=== PATIENT | female | born 1940 | race Caucasian/White ===

== ENCOUNTER 2018-01-16 13:12 | Inpatient (IN) | payer MEDICARE ==
[~2018-01-16] VITALS: Ht 162.6 cm; Wt 77.2 kg
--- NOTE | 2018-01-16 13:12 | NUR ---
[id number] FROM STRE[address]: LACERATION TO L EYEBROW, BALATERAL ANKLE PAIN S/P UNWITNESSED FALL. NAD NOTED. PT AAO TO NAME AND PLACE ONLY. VSS. RR EVEN AND UNLABORED. MD AT BEDSIDE FOR EVAL.
--- NOTE | 2018-01-16 13:21 | NUR ---
CALLED NURSING SUP FOR TELE BED
[2018-01-16 13:53] LABS: BASOPHILS # (AUTO) 0.1 /CMM (0.0-0.2); EOSINOPHILS % (AUTO) 1.9 % (0.0-6.0)
[2018-01-16 13:57] LABS: BASOPHILS % (AUTO) 0.5 % (0.0-2.0); HEMATOCRIT 35 % (33-45); LYMPHOCYTES # (AUTO) 1.3 /CMM (0.8-4.8); LYMPHOCYTES % (AUTO) 10.3 % (20.0-44.0); MEAN CORPUSCULAR HGB CONC 31 g/dl (31.0-36.0); MEAN CORPUSCULAR VOLUME 60 fL (82-100); MONOCYTES % (AUTO) 8.1 % (2.0-12.0); NEUTROPHILS # (AUTO) 9.9 /CMM (1.8-8.9); NEUTROPHILS % (AUTO) 79.2 % (43.0-81.0); PLATELET COUNT (AUTO) 363 /CMM (150-450); RED BLOOD CELL COUNT(AUTO) 5.84 MIL/uL (4.0-5.2); WHITE BLOOD COUNT (AUTO) 12.5 K/uL (4.3-11.0)
--- NOTE | 2018-01-16 14:08 | NUR ---
PER ESCALATOR INSTALLER, PT IS FROM [facility].
[2018-01-16 14:10] LABS: CALCIUM, SERUM 8.6 mg/dL (8.5-10.1); CARBON DIOXIDE 32 mmol/L (21-32); CHLORIDE 101 mmol/L (98-107); CREATININE 0.8 mg/dL (0.6-1.3); GLUCOSE 112 mg/dL (74-106); POTASSIUM 3.5 mmol/L (3.5-5.1); SODIUM SERUM 138 mmol/L (136-145); UREA NITROGEN, BLOOD 12 mg/dL (7-18)
[2018-01-16 14:13] LABS: TROPONIN I < 0.017 ng/mL (0.00-0.056)
[2018-01-16 14:15] LABS: ALANINE AMINOTRANSFERASE 21 U/L (12-78); ALBUMIN 3.4 g/dL (3.4-5.0); ALKALINE PHOSPHATASE 89 U/L (46-116); ASPARTATE AMINOTRANSFERASE 21 U/L (15-37); BILIRUBIN,DIRECT 0.2 mg/dL (0.0-0.2); INR 0.96 (0.85-1.15)
[2018-01-16 16:31] LABS: APPEARANCE,URINE Clear (CLEAR); BILIRUBIN,URINE Negative (NEGATIVE); BLOOD, URINE Trace-lysed Ery/uL (NEGATIVE); COLOR,URINE Dark (YELLOW); KETONES,URINE Negative (NEGATIVE); LEUKOCYTE ESTERASE ,URINE Negative (NEGATIVE); NITRITE, URINE Negative (NEGATIVE); PH,URINE 5.5 (5.0-8.0); PROTEIN,URINE Negative (NEGATIVE); UGLUCOSE Negative (NEGATIVE); UROBILINOGEN,URINE 0.2 EU/dL (0.2)
[2018-01-16 17:00] LABS: RBC,URINE 0-2 /HPF (0-2); WBC,URINE 0-2 /HPF (0-3)
[2018-01-16 17:01] LABS: BACTERIA,URINE Rare /HPF (None Seen); SQUAMOUS EPITHELIAL CELL,UR Few /HPF (None Seen)
[2018-01-16] MEDS ORDERED: AMLO5TAB7 PO (17:52)
[2018-01-16] MEDS ORDERED: ESCI10TA PO (17:52)
--- NOTE | 2018-01-16 18:00 | NUR ---
CALLED [facility], REQUESTED THEM TO FAX US PT INFO, ACCORDING TO NURSE THERE THE PRIMARY DR. IS
--- NOTE | 2018-01-16 18:13 | NUR ---
GROUP CALLED, FOREIGN LANGUAGE PROFESSOR, PAGED
[2018-01-16] MEDS ORDERED: ASPI-1169 PO (18:23)
[2018-01-16] MEDS ORDERED: ACET-868 PO (18:23)
[2018-01-16] MEDS ORDERED: MAGN400O6 PO (18:23)
[2018-01-16] MEDS ORDERED: NA P133E RC (18:23)
[2018-01-16] MEDS ORDERED: ATOR40TA PO (18:23)
[2018-01-16] MEDS ORDERED: BISA10SU8 RC (18:23)
[2018-01-16] MEDS ORDERED: ACET-2605 PO (18:23)
--- NOTE | 2018-01-16 18:31 | NUR ---
REPORT GIVEN TO NAMITA WARE FOR TASNEEM
--- NOTE | 2018-01-16 19:27 | NUR ---
CALLED [facility] FOR PSYCH EVAL
--- NOTE | 2018-01-16 19:30 | NUR ---
TELE/RN OPENING NOTES PT RECEIVED TO UNIT FROM ER VIA ONEIL. A/OX1-2. ON ROOM AIR, BREATHING EVEN AND UNLABORED. DENIES SOB OR PAIN AT THIS TIME. PT WITH NO IV ACCESS AT THIS TIME. WILL REINSERT. ORIENTED PT TO ROOM AND CALL LIGHT. BED IN LOW/LOCKED POSITION WITH CALL LIGHT IN REACH. SIDE RAILS UPX3 WITH BED ALARM ON FOR SAFETY. LEFT FOREHEAD LACERATION WITH STITCHES NOTED. DRIED BLOOD NOTED. ATTEMPTED TO REMOVE WITH WARM WET WASHCLOTH BUT PT REFUSING. PLACED ON TELE MONITOR SHOWING SR WITH BBB, HR 77. WILL CONTINUE TO MONITOR
[2018-01-16 20:00] VITALS: BP_SYST 132; BP_SYST 134; BP_DIAS 72; BP_DIAS 87
--- NOTE | 2018-01-16 20:30 | NUR ---
TELE/RN NOTES PAGED DR. TUCKER FOR ADMITTING ORDERS.
--- NOTE | 2018-01-16 20:44 | NUR ---
TELE/RN NOTES RECEIVED CALL FROM DR TUCKER WITH THE FOLLOWING ORDERS. ADMITTING DX= ALOC, SYNCOPE, HEAD CONTUSION; ADMIT TO= TELE; DIET=REGULAR; IVF- D5NS@70ML/HR; AM LABS= CBC, BMP; CONTINUE MEDS FROM HALF-WAY AND PSYCH CONSULT COMES TO SEE THIS PT FOR POSSIBLE 5150 HOLD. ORDERS NOTED AND READBACK PER PROTOCOL. WILL CARRY OUT. Addendum: 01/17/18 at 0014 by DANYA AARON RN ADMIT TO= MEDSURG*
[2018-01-16] MEDS ORDERED: ACETAMINOPHEN 325 MG TABLET PO PRN (21:00)
[2018-01-16] MEDS ORDERED: ACETAMINOPHEN ES 500 MG TABLET PO PRN (21:00)
[2018-01-16] MEDS ORDERED: NA PHOS,M-B/NA PHOS,DI-BA 1 EA ENEMA RC PRN (21:00)
[2018-01-16] MEDS ORDERED: MAGNESIUM HYDROXIDE 30 ML UDC PO PRN (21:00)
[2018-01-16] MEDS ORDERED: BISACODYL SUPP (10 MG) 10 MG/SUPP.RECT SUPP.RECT RC PRN (21:00)
[2018-01-16] MEDS ORDERED: ATORVASTATIN 40 MG TABLET PO SCH (22:00)
[2018-01-16] MEDS: IV D5/ 0.9% NACL 1,000 ML IV PRN (22:36)
--- NOTE | 2018-01-16 22:40 | NUR ---
MS/RN NOTES PT REFUSING IV INSERTION. EDUCATION PROVIDED X3. PT STRONGLY REFUSING AND BECOMING AGITATED. WILL TRY AGAIN LATER
--- NOTE | 2018-01-16 23:10 | NUR ---
MS/RN NOTES PT WANTING TO GET OUT OF THE BED. PT DOES NOT NEED TO USE THE RESTROOM. ENCOURAGED PT TO REMAIN IN THE BED DUE TO PT'S RECENT FALL AND HEAD CONTUSION. PT REFUSING AND "WANTS TO BE LEFT ALONE. I NEED TO GET SOME THINGS DONE". MONITORED AND ASSISTED PT WAS WANDERING INSIDE HER ROOM. PT WENT INTO HALLWAY, ATTEMPTING TO GO IN OTHER PT'S ROOM. ATTEMPTED TO REDIRECT PT. PT BECOMING INCREASINGLY AGITATED WHEN TRYING TO REDIRECT, STAFF ESCORTED BACK TO ROOM. EDUCATED PT THAT SHE NEEDS TO STAY IN BED TO AVOID FALLS. PT RELUCTANTLY WENT BACK TO BED. BED ALARM PLACED AND SIDE RAILS UP FOR SAFETY.
--- NOTE | 2018-01-17 03:10 | NUR ---
MS/RN NOTES PT AGREED FOR IV INSERTION. LAC #22, IVF INITIATED
--- NOTE | 2018-01-17 06:55 | NUR ---
MS/RN CLOSING NOTES PT AWAKE, RESTING COMFORTABLY IN BED. REMAINED CALM FOR THE DURATION OF THE SHIFT. REMAINS ON ROOM AIR, BREATHING EVEN AND UNLABORED. NO SOB OR PAIN AT THIS TIME. A/OX1-2 CONFUSED. IV TO LAC PATENT AND INTACT RUNNING IVF ORDERED. ASSISTED TO THE BATHROOM PRN WITH STANDBY ASSIST. STEADY GAIT. REORIENTED PRN. ALL NEEDS MET. SAFETY PRECAUTIONS IMPLEMENTED. BED REMAINS IN LOW/LOCKED POSITION WITH CALL LIGHT IN REACH. SIDE RAILS UPX3 AND BED ALARM ON FOR SAFETY. FOR PSYCH CONSULT PER MD ORDER. WILL ENDORSE TO DAY SHIFT RN TASNEEM.
[2018-01-17 07:08] LABS: BASOPHILS # (AUTO) 0.1 /CMM (0.0-0.2); BASOPHILS % (AUTO) 0.4 % (0.0-2.0); HEMATOCRIT 35 % (33-45); HEMOGLOBIN 11.1 g/dL (11.5-14.8); LYMPHOCYTES # (AUTO) 1.9 /CMM (0.8-4.8); LYMPHOCYTES % (AUTO) 12.5 % (20.0-44.0); MEAN CORPUSCULAR HGB CONC 32 g/dl (31.0-36.0); MEAN CORPUSCULAR VOLUME 60 fL (82-100); MONOCYTES # (AUTO) 1.5 /CMM (0.1-1.30); MONOCYTES % (AUTO) 10.1 % (2.0-12.0); NEUTROPHILS # (AUTO) 11.4 /CMM (1.8-8.9); PLATELET COUNT (AUTO) 357 /CMM (150-450); RDW COEFFICIENT OF VARIATION 16.5 (11.5-15.0); RED BLOOD CELL COUNT(AUTO) 5.84 MIL/uL (4.0-5.2); WHITE BLOOD COUNT (AUTO) 15.2 K/uL (4.3-11.0)
--- NOTE | 2018-01-17 07:30 | NUR ---
MS RN NOTES PATIENT RECEIVED RESTING INSIDE ROOM, AWAKE, ALERT AND ORIENTED 1-2. VERBALLY RESPONSIVE AND RESPONDS TO VERBAL AND TACTILE STIMULI. BREATHING EVEN AND UNLABORED. NO SOB OR ACUTE DISTRESS NOTED. PATIENT NOTED WITH LEFT FOREHEAD LACERATION WITH STITCHES. PATIENT DENIES ANY PAIN OR DISCOMFORT. NO CHANGES IN LOC NOTED. IV SITE INTACT AND PATENT, NO SWELLING OR DISCOLORATION NOTED. AWAITING PSYCH CONSULT. WILL CONTINUE TO MONITOR. BILATERAL UPPER SIDE RAILS UP AND LOCKED. BED LOCKED AND IN LOW POSITION. BED ALARM ON. CALL LIGHT WITHIN EASY REACH
[2018-01-17 07:43] LABS: CALCIUM, SERUM 8.5 mg/dL (8.5-10.1); CARBON DIOXIDE 27 mmol/L (21-32); CHLORIDE 102 mmol/L (98-107); CREATININE 0.7 mg/dL (0.6-1.3); GLUCOSE 126 mg/dL (74-106); POTASSIUM 3.6 mmol/L (3.5-5.1); SODIUM SERUM 139 mmol/L (136-145); UREA NITROGEN, BLOOD 11 mg/dL (7-18)
[2018-01-17 08:00] VITALS: BP 145/54
[2018-01-17] MEDS: ASPIRIN 81 MG TAB.CHEW PO SCH (08:14)
[2018-01-17] MEDS: AMLODIPINE BESYLATE 5 MG TABLET PO SCH (08:14)
[2018-01-17] MEDS: ESCITALOPRAM OXALATE (10 MG) 10 MG TABLET PO SCH (08:14)
[2018-01-17 08:20] LABS: IRON, SERUM 28 ug/dl (50-175); TOTAL IRON BINDING CAPACITY 254 ug/dl (250-450)
[2018-01-17 08:35] LABS: CHOLESTEROL 120 mg/dL (<200); FERRITIN 126 ng/mL (8-388); HDL CHOLESTEROL 37 mg/dL (40-60); LDL 73 mg/dL (0-99); MAGNESIUM 1.8 mg/dL (1.8-2.4); THYROID STIMULATING HORMONE 1.501 uIU/mL (0.358-3.74); TRIGLYCERIDES 108 mg/dL (30-150); TROPONIN I < 0.017 ng/mL (0.00-0.056)
[2018-01-17 09:00] VITALS: BP_SYST 132; BP_SYST 135; BP_SYST 138; BP_DIAS 54; BP_DIAS 67; BP_DIAS 74
[2018-01-17] MEDS ORDERED: ESCITALOPRAM OXALATE (10 MG) 10 MG TABLET PO SCH (11:30)
--- NOTE | 2018-01-17 13:22 | NUR ---
MS RN NOTES PATIENT SEEN AND EXAMINED BY DR. LORENA MARIA WITH NEW ORDER FOR BLOOD CULTURE X 2 TO BE DONE TODAY. ORDER NOTED AND CARRIED OUT. PATIENT AND DAUGHTER AT BEDSIDE AWARE. LAB MADE AWARE. WILL CONTINUE TO MONITOR
[2018-01-17 16:00] VITALS: BP 130/89
[2018-01-17] MEDS: FERROUS SULFATE (325 MG) 325 MG/TAB TABLET PO SCH (16:16)
--- NOTE | 2018-01-17 19:05 | NUR ---
MS/DEBONING TEAM LEADER; RECEIVED PT'S REPORTS FROM THE DAY SHIFT RN FOR CONTINUITY OF CARE. AT THIS TIME PT IN BED AWAKE, VERBALLY RESPONSIVE BUT WITH CONFUSION. IVF ON PROGRESS. BED ON LOWER POSITION AND LOCKED FOR SAFETY. SIDE RAILS X3 ARE UP FOR SAFETY. CALL LIGHT WITHIN REACH. NIGHT SITTER PRESENT AT THIS TIME. WILL CONTINUE TO MONITOR.
--- NOTE | 2018-01-17 19:47 | NUR ---
MS RN NOTES PATIENT RESTING INSIDE ROOM, AWAKE, ALERT AND ORIENTED. VERBALLY RESPONSIVE AND RESPONDS TO VERBAL AND TACTILE STIMULI. BREATHING EVEN AND UNLABORED. NO SOB OR ACUTE DISTRESS NOTED. NO CHANGES IN LOC NOTED. PATIENT AFEBRILE, SKIN DRY AND WARM TO TOUCH. IV SITE INTACT AND PATENT. NO SWELLING OR BLEEDING NOTED ON SITE. ENDORSED TO INCOMING SHIFT FOR TASNEEM. BED LOCKED AND IN LOW POSITION. BILATERAL UPPER SIDE RAILS UP AND LOCKED. CALL LIGHT WITHIN EASY REACH
--- NOTE | 2018-01-17 19:55 | NUR ---
MS/OBSTETRICS SCRUB NURSE; RN FROM [facility] CALLED AND I SPOKE TO HER AND SHE SAID DAY SHIFT RNYOLI CALLED HER REGARDING PT'S ALLERGIES AND THE RN SAID PT IS ALLERGIC TO MUSHROOM AND ONIONS NO MEDS. ALLERGY.
[2018-01-17 20:00] VITALS: BP 146/61
--- NOTE | 2018-01-17 20:00 | NUR ---
MS/COAGULATING BATH OPERATOR; PT WALKED FROM THE ROOM TO THE HALLWAY WITH THE SITTER TOLERATED FINE AND BACK TO THE ROOM. DENIES PAIN. WILL CONTINUE TO MONITOR. PT WITH LT FOREHEAD LACERATION.
--- NOTE | 2018-01-17 20:15 | NUR ---
MS/ASSOCIATE EMBALMER/FUNERAL DIRECTOR; PT SITTING ON THE CHAIR AT THIS TIME WITH SITTER AT THE SIDE AND PT IS EATING BY SELF.
[2018-01-17] MEDS: IV D5/ 0.9% NACL 1,000 ML IV PRN (23:21)
--- NOTE | 2018-01-18 06:30 | NUR ---
MS/LENS MOLDER; NEW HL STARTED BY THE CHARGE NURSE ON LA # 22 AND IVF RESUMED. OLD HL REMOVED BY THE CN. PT AWAKE MOST OF THE TIME. AM CARE DONE BY THE SITTER. WILL ENDORSE TO THE DAY SHIFT NURSE.
--- NOTE | 2018-01-18 07:36 | NUR ---
MS RN NOTES PATIENT RECEIVED RESTING INSIDE ROOM, AWAKE, ALERT AND ORIENTED X 1-2 WITH FREQUENT EPISODES OF FORGETFULNESS. PATIENT VERBALLY RESPONSIVE AND RESPONDS TO VERBAL AND TACTILE STIMULI. BREATHING EVEN AND UNLABORED. NO SOB OR ACUTE DISTRESS NOTED. PATIENT CALM AND RELAXED. NO CHANGES IN LOC NOTED AT THIS TIME. IV SITE INTACT AND PATENT, NO SWELLING OR BLEEDING NOTED ON SITE. SITTER AT BEDSIDE. PATIENT REORIENTED. WILL CONTINUE TO MONITOR. BED LOCKED AND IN LOW POSITION, BED ALARM ON. BILATERAL UPPER SIDE RAILS UP AND LOCKED. CALL LIGHT WITHIN EASY REACH
[2018-01-18 08:00] VITALS: BP 130/70
[2018-01-18] MEDS: FERROUS SULFATE (325 MG) 325 MG/TAB TABLET PO SCH ×2 (08:08→16:45)
[2018-01-18] MEDS: AMLODIPINE BESYLATE 5 MG TABLET PO SCH (08:08)
[2018-01-18] MEDS: ASPIRIN 81 MG TAB.CHEW PO SCH (08:08)
[2018-01-18] MEDS: ESCITALOPRAM OXALATE (10 MG) 10 MG TABLET PO SCH (08:08)
[2018-01-18 08:13] LABS: BASOPHILS % (AUTO) 0.3 % (0.0-2.0); EOSINOPHILS % (AUTO) 3.6 % (0.0-6.0); HEMATOCRIT 34 % (33-45); HEMOGLOBIN 10.6 g/dL (11.5-14.8); LYMPHOCYTES # (AUTO) 1.6 /CMM (0.8-4.8); LYMPHOCYTES % (AUTO) 12.8 % (20.0-44.0); MEAN CORPUSCULAR HGB CONC 31 g/dl (31.0-36.0); MEAN CORPUSCULAR VOLUME 61 fL (82-100); MONOCYTES # (AUTO) 1.1 /CMM (0.1-1.30); MONOCYTES % (AUTO) 8.6 % (2.0-12.0); NEUTROPHILS # (AUTO) 9.5 /CMM (1.8-8.9); NEUTROPHILS % (AUTO) 74.7 % (43.0-81.0); PLATELET COUNT (AUTO) 341 /CMM (150-450); RDW COEFFICIENT OF VARIATION 16.8 (11.5-15.0); RED BLOOD CELL COUNT(AUTO) 5.62 MIL/uL (4.0-5.2); WHITE BLOOD COUNT (AUTO) 12.8 K/uL (4.3-11.0)
[2018-01-18 08:29] LABS: ALANINE AMINOTRANSFERASE 23 U/L (12-78); ALKALINE PHOSPHATASE 92 U/L (46-116); ASPARTATE AMINOTRANSFERASE 21 U/L (15-37); CALCIUM, SERUM 8.6 mg/dL (8.5-10.1); CARBON DIOXIDE 27 mmol/L (21-32); CHLORIDE 103 mmol/L (98-107); CREATININE 0.6 mg/dL (0.6-1.3); GLUCOSE 115 mg/dL (74-106); MAGNESIUM 1.7 mg/dL (1.8-2.4); PHOSPHORUS 2.5 mg/dL (2.5-4.9); POTASSIUM 3.2 mmol/L (3.5-5.1); SODIUM SERUM 139 mmol/L (136-145); TOTAL PROTEIN, SERUM 6.8 g/dL (6.4-8.2); UREA NITROGEN, BLOOD 8 mg/dL (7-18)
[2018-01-18 08:40] LABS: EOSINOPHILS % (MANUAL) 5 % (0-4); LYMPHOCYTES % (MANUAL) 12 % (16-48); MONOCYTES % (MANUAL) 7 % (0-11.0); NEUTROPHILS % (MANUAL) 76 (42-76); TROPONIN I < 0.017 ng/mL (0.00-0.056)
[2018-01-18] MEDS ORDERED: Magnesium 1GM/D5W 100ML PREMIX 100 ML IV SCH (08:59)
[2018-01-18] MEDS: POTASSIUM CHLORIDE 20 MEQ TAB.PRT.SR PO SCH ×3 (09:27→10:35)
[2018-01-18] MEDS ORDERED: MAGNESIUM OXIDE 400 MG TABLET PO ONE (10:00)
[2018-01-18 16:00] VITALS: BP 116/65
--- NOTE | 2018-01-18 18:50 | NUR ---
MS RN NOTES PATIENT RESTING INSIDE ROOM. AWAKE, ALERT AND ORIENTED WITH FREQUENT PERIODS OF FORGETFULNESS. SITTER AT BEDSIDE. PATIENT BREATHING EVEN AND UNLABORED. NO SOB OR ACUTE DISTRESS NOTED. PATIENT AFEBRILE, SKIN DRY AND WARM TO TOUCH. NO CHANGES IN LOC NOTED. PATIENT CALM AND RELAXED. DENIES ANY PAIN OR DISCOMFORT. WILL ENDORSE TO INCOMING SHIFT FOR TASNEEM. BED LOCKED AND IN LOW POSITION. ALARM ON. BILATERAL SIDE RAILS UP AND LOCKED. CALL LIGHT WITHIN EASY REACH
--- NOTE | 2018-01-18 19:37 | NUR ---
MS RN OPENING NOTES PT RECEIVED RESTING INSIDE ROOM, AWAKE, A & O X 1-2. VERBALLY RESPONSIVE AND RESPONDS TO VERBAL AND TACTILE STIMULI. BREATHING EVEN AND UNLABORED. NO SOB OR ACUTE DISTRESS NOTED. PATIENT DENIES ANY PAIN OR DISCOMFORT. ON 1:1 SITTER SUPERVISION FOR SAFETY. NO CHANGES IN LOC NOTED. NO IV SITE @ THIS TIME DUE TO PT HAS BEEN REMOVING THE IV CATH EVERY TIME IT WAS INSERTED, PER AM RN. WILL CONTINUE TO MONITOR. BILATERAL UPPER SIDE RAILS UP AND LOCKED. BED LOCKED AND IN LOW POSITION. BED ALARM ON. CALL LIGHT WITHIN EASY REACH.
[2018-01-18 20:00] VITALS: BP 141/87
--- NOTE | 2018-01-19 03:35 | NUR ---
MS RN NOTE PT SLEPT INTERMITTENTLY UNTIL NOW. ON 1:1 SITTER FOR SAFETY. ABLE TO AMBULATE WITH ASSISTANCE. NO TASNEEM NOTED.
--- NOTE | 2018-01-19 06:29 | NUR ---
MS/RN CLOSING NOTES PT SLEEPING COMFORTABLY IN BED. REMAINED CALM FOR THE DURATION OF THE SHIFT, @ RA, BREATHING EVEN AND UNLABORED. NO SOB OR PAIN AT THIS TIME. A & O X 1-2 CONFUSED. NO IV ACCESS. ASSISTED TO THE BATHROOM PRN WITH STANDBY ASSIST. ON 1:1 SITTER OBSERVATION. REORIENTED PRN. ALL NEEDS MET. SAFETY PRECAUTIONS IMPLEMENTED. BED IN LOW/LOCKED POSITION WITH CALL LIGHT IN REACH. SIDE RAILS UP X 2 AND BED ALARM ON FOR SAFETY. WILL ENDORSE TO DAY SHIFT RN TASNEEM.
[2018-01-19 07:22] LABS: BASOPHILS # (AUTO) 0.1 /CMM (0.0-0.2); BASOPHILS % (AUTO) 0.4 % (0.0-2.0); EOSINOPHILS % (AUTO) 3.7 % (0.0-6.0); HEMATOCRIT 37 % (33-45); HEMOGLOBIN 11.5 g/dL (11.5-14.8); LYMPHOCYTES # (AUTO) 2.5 /CMM (0.8-4.8); LYMPHOCYTES % (AUTO) 19.6 % (20.0-44.0); MEAN CORPUSCULAR HGB CONC 31 g/dl (31.0-36.0); MEAN CORPUSCULAR VOLUME 60 fL (82-100); MONOCYTES % (AUTO) 8.1 % (2.0-12.0); NEUTROPHILS # (AUTO) 8.5 /CMM (1.8-8.9); NEUTROPHILS % (AUTO) 68.2 % (43.0-81.0); PLATELET COUNT (AUTO) 388 /CMM (150-450); RDW COEFFICIENT OF VARIATION 16.7 (11.5-15.0); RED BLOOD CELL COUNT(AUTO) 6.12 MIL/uL (4.0-5.2); WHITE BLOOD COUNT (AUTO) 12.5 K/uL (4.3-11.0)
--- NOTE | 2018-01-19 07:36 | NUR ---
MS RN OPENING NOTES RECEIVED PT FROM NIGHTSHIFT NURSE IN STABLE CONDITION. PT IS A/O X2. NO SOB OR SIGNS OF DISTRESS NOTED. BREATHING IS EVEN AND UNLABORED. PT ON RA AND SATING WELL. NO IV ACCESS AT THIS TIME PT HAS REPEATEDLY PULLED OUT PRIOR ATTEMPTS. IS AWARE PER NIGHTSHIFT NURSE. BED IN LOW LOCKED POSITION, SIDE RAILS UP X2, CALL LIGHT WITHIN REACH, SITTER AT BEDSIDE. WILL CONTINUE TO MONITOR
[2018-01-19 07:41] LABS: CALCIUM, SERUM 9.2 mg/dL (8.5-10.1); CARBON DIOXIDE 29 mmol/L (21-32); CHLORIDE 102 mmol/L (98-107); CREATININE 0.8 mg/dL (0.6-1.3); GLUCOSE 104 mg/dL (74-106); MAGNESIUM 1.8 mg/dL (1.8-2.4); POTASSIUM 3.9 mmol/L (3.5-5.1); SODIUM SERUM 139 mmol/L (136-145); UREA NITROGEN, BLOOD 11 mg/dL (7-18)
[2018-01-19 08:00] VITALS: BP_SYST 125; BP_SYST 130; BP_SYST 134; BP_DIAS 69; BP_DIAS 73; BP_DIAS 75
[2018-01-19] MEDS ORDERED: ERGOCALCIFEROL (VITAMIN D 2) 50,000 UNIT CAPSULE PO SCH (08:30)
[2018-01-19] MEDS: ESCITALOPRAM OXALATE (10 MG) 10 MG TABLET PO SCH (08:37)
[2018-01-19 08:38] VITALS: BP 125/69
[2018-01-19] MEDS: AMLODIPINE BESYLATE 5 MG TABLET PO SCH (08:38)
[2018-01-19] MEDS: FERROUS SULFATE (325 MG) 325 MG/TAB TABLET PO SCH (08:38)
[2018-01-19] MEDS: ASPIRIN 81 MG TAB.CHEW PO SCH (08:38)
[2018-01-19 09:41] LABS: EOSINOPHILS % (MANUAL) 1 % (0-4); LYMPHOCYTES % (MANUAL) 8 % (16-48); MONOCYTES % (MANUAL) 7 % (0-11.0); NEUTROPHILS % (MANUAL) 84 (42-76)
--- NOTE | 2018-01-19 10:47 | NUR ---
WOUND CARE CONSULT: PT PRESENTS WITH CLOSED LACERATION TO LEFT FOREHEAD AND SOME DRY ABRASIONS, PRESENT ON ADMISSION. CURRENT JOSE C SCORE IS 19. SITTER AT BEDSIDE. RECOMMENDATIONS MADE FOR SKIN PROTECTION. DISCUSSED WITH NURSING STAFF. WILL SEE PRN. Addendum: 01/19/18 at 1049 by CAMELIA GARCIA WNDNU Amended: Links added.
[2018-01-19] MEDS ORDERED: Z GUARD REMEDY 2 OZ OINT TP PRN (11:00)
[2018-01-19] MEDS ORDERED: Z GUARD REMEDY 2 OZ OINT TP SCH (11:00)
--- NOTE | 2018-01-19 14:53 | NUR ---
MS STUDIO DESIGNER NOTES PT WAS DISCHARGED FROM FACILITY IN STABLE CONDITION. ALL NEEDS WERE MET DURING SHIFT AND ORDERS CARRIED OUT ACCORDINGLY. ALL DUE MEDS WERE GIVEN. NO ACUTE CHANGES IN MENTATION DURING SHIFT. WOUND AND SKIN CARE WAS RENDERED ORDERED. BELONGINGS VERIFIED WITH FIELD OBSERVER PRIOR TO D/C. DISCHARGE INSTRUCTIONS REVIEWED WITH PT AND AND THE [facility] NURSING DEVOPS ENGINEER PRIOR TO D/C. REPORT WAS ALSO GIVEN TO NURSING DEVOPS ENGINEER. PT WAS SAFELY TRANSFERRED FROM BED TO [facility] AND LEFT VIA AMBULANCE WITH ALL BELONGINGS.
== END 2018-01-19 14:50 | DRG 183 ==
LOC: EDBD 13:14 → ER 13:14 → TELE 18:32 → MED 21:33
PROVIDERS: ADMIT Internal Medicine Nephrology; ATTEND Internal Medicine Nephrology
DX: S22.41XA Multiple fractures of ribs, right side, initial encounter for closed fracture (principal); G93.40 Encephalopathy, unspecified; L89.159 Pressure ulcer of sacral region, unspecified stage; F33.2 Major depressive disorder, recurrent severe without psychotic features; D64.9 Anemia, unspecified; S01.01XA Laceration without foreign body of scalp, initial encounter; D56.9 Thalassemia, unspecified; F03.90 Unspecified dementia, unspecified severity, without behavioral disturbance, psychotic disturbance, mood disturbance, and anxiety; D72.829 Elevated white blood cell count, unspecified; E78.5 Hyperlipidemia, unspecified; I10 Essential (primary) hypertension; W19.XXXA Unspecified fall, initial encounter; S01.112A Laceration without foreign body of left eyelid and periocular area, initial encounter; Y92.410 Unspecified street and highway as the place of occurrence of the external cause; Z79.899 Other long term (current) drug therapy; Z79.82 Long term (current) use of aspirin; I25.10 Atherosclerotic heart disease of native coronary artery without angina pectoris; Z95.1 Presence of aortocoronary bypass graft; E87.6 Hypokalemia
CPT/HCPCS: 36415; 70450-TC; 71045-TC; 71100-TC; 72125-TC; 80048-TC; 80053-TC; 80061-TC; 80076-TC; 81000-TC; 82306; 82728-TC; 82962-TC; 83540-TC; 83735-TC; 84100-TC; 84439-TC; 84443-TC; 84484-TC; 85025-TC; 85730-TC; 87040-TC; 93307-TC; A4606; A6402; A6403; J7042; Z7610

== ENCOUNTER 2018-03-05 19:27 | Inpatient (IN) | payer MEDICARE ==
[~2018-03-05] VITALS: Ht 172.7 cm; Wt 80.7 kg
[~2018-03-05 19:27] MED LIST: ACET-2605 PO; ACET-868 PO; AMLO5TAB2 PO; ASPI-1169 PO; ATOR40TA PO; BISA10SU8 RC; ESCI10TA PO; MAGN400O6 PO; NA P133E RC
--- NOTE | 2018-03-05 19:40 | NUR ---
BBRA 60 FROM [facility] C/C MECHANICAL FALL FROM BED LANDING ON LEFT HIP. PT STATES SHARP LEFT HIP PAIN 10/10 NON RADIATING. LEFT LEG SHORTENING AND OUTWARD ROATION NOTED. EQUAL SENSATIONS, EQUAL AND STRONG BILATERAL PULSES. PT DENIES HEAD TRAUMA AND -KO. -N/V. PT DENIES ANY OTHER TRAUMA. PT IS AAOX4. PER EMS, PT GIVEN MORPHONE 8MG AND ZOFRAN 4MG [place] [employer] [place] LAW CLERK. 18G L AC IV PRESENT [place] [employer] [place] LAW CLERK. VSS. NO ACUTE DISTRESS NOTED. RESP EVEN AND UNLABORED. PT PLACED ON DOCUMENT SCANNER AND POX.PT SAFETY AND COMFORT MEASURES IN PLACE. AWAITING MD FOR EVAL.
--- NOTE | 2018-03-05 19:47 | NUR ---
PER MD, PT PLACED ON OXYGEN NC 2L/M S/P BEING ADMINISTERED 8MG MORPHINE IN FIELD BY EMS. WILL GAGANDEEP TO MONITOR PT. SPO2 ON NC 2L/M 97%
--- NOTE | 2018-03-05 19:48 | NUR ---
BEDSIDE FOR EVAL
[2018-03-05 19:50] LABS: BASOPHILS # (AUTO) 0.1 /CMM (0.0-0.2); BASOPHILS % (AUTO) 0.5 % (0.0-2.0); EOSINOPHILS % (AUTO) 3.3 % (0.0-6.0); HEMATOCRIT 36 % (33-45); HEMOGLOBIN 11.2 g/dL (11.5-14.8); LYMPHOCYTES # (AUTO) 2.4 /CMM (0.8-4.8); LYMPHOCYTES % (AUTO) 20.4 % (20.0-44.0); MEAN CORPUSCULAR HEMOGLOBIN 19 PG (26.0-33.0); MEAN CORPUSCULAR HGB CONC 32 g/dl (31.0-36.0); MEAN CORPUSCULAR VOLUME 61 fL (82-100); MONOCYTES % (AUTO) 8.9 % (2.0-12.0); NEUTROPHILS # (AUTO) 7.8 /CMM (1.8-8.9); NEUTROPHILS % (AUTO) 66.9 % (43.0-81.0); PLATELET COUNT (AUTO) 323 /CMM (150-450); RDW COEFFICIENT OF VARIATION 16.6 (11.5-15.0); RED BLOOD CELL COUNT(AUTO) 5.83 MIL/uL (4.0-5.2); WHITE BLOOD COUNT (AUTO) 11.7 K/uL (4.3-11.0)
[2018-03-05 20:02] LABS: CALCIUM, SERUM 9.2 mg/dL (8.5-10.1); CARBON DIOXIDE 28 mmol/L (21-32); CHLORIDE 100 mmol/L (98-107); GLUCOSE 144 mg/dL (74-106); POTASSIUM 3.5 mmol/L (3.5-5.1); SODIUM SERUM 135 mmol/L (136-145); UREA NITROGEN, BLOOD 18 mg/dL (7-18)
[2018-03-05 20:06] LABS: INR 0.9 (0.85-1.15)
--- NOTE | 2018-03-05 21:13 | NUR ---
ON-CALL FOR DR. ESPINO PAGED.
--- NOTE | 2018-03-05 21:20 | NUR ---
BED 314-2
--- NOTE | 2018-03-05 21:25 | NUR ---
REPORT GIVEN TO MARII MELGAR FOR TASNEEM. PT'S ROOM CHANGED TO [facility]
[2018-03-05 22:00] VITALS: BP 133/74
[2018-03-05 22:30] VITALS: BP 133/74
--- NOTE | 2018-03-05 22:30 | NUR ---
MS RN ADMITTING NOTE Patient arrived to unit from ED in stable condition, breathing on 3L O2 NC with no SOB. Vitals: BP 133/74, HR 103, O2 Sat 100%, Temp 98.1. Patient's only complaint is severe pain with movement and position change, otherwise, patient reports only 1/10 pain at rest (s/p left femor fx). Initial physical assessment complete. Past medical history obtained from patient and from records. Patient is awake and oriented x2 but drowsy from 8mg of morphine given by EMS. Patient was made comfortable in bed and educated reservation agent [place] and unit. Bed is low/locked, two side rails up, and call [place] within reach. Patient has no immediate needs at this time. Will continue to monitor.
--- NOTE | 2018-03-05 23:30 | NUR ---
MS RN NOTE - call from [facility] Received phone call from RN at [facility] where the patient normally resides. RN requesting copy of hip xray be faxed to their facility at [phone]. Patient fell at their facility. Copy of xray report was printed and faxed accordingly.
[2018-03-06] MEDS ORDERED: IV 1/2NS 1000 ML 1,000 ML IV PRN (02:00)
[2018-03-06] MEDS ORDERED: ONDANSETRON HCL/PF 4 MG/2 ML VIAL IV PRN (02:00)
--- NOTE | 2018-03-06 04:58 | NUR ---
MS RN NOTE - Morphine 2mg IV Morphine was given as ordered for severe pain. This was administered prior to changing diaper and repositioning patient, as patient states that changing positions causes her significant pain rated at 9/10 (patient with fracture to left femoral neck).
[2018-03-06] MEDS: MORPHINE SULFATE INJ 2 MG/ML DISP.SYRIN IV PRN ×3 (04:59→17:06)
--- NOTE | 2018-03-06 06:38 | NUR ---
MS RN CLOSING NOTE Patient was seen sleeping in bed but awoke easily to name. Patient is AAOx2, breathing on 2.5 L O2 NC with no SOB, and no signs of acute distress. Patient slept well overnight with no complications and remains in stable condition. 1/2 NS is running through the left AC with no signs of leaking or infiltration. Bed is low/locked, two side rails up, and call [place] within reach. All patient needs have been addressed. Patient care endorsed to day shift nurse.
[2018-03-06 07:14] LABS: BASOPHILS % (AUTO) 0.1 % (0.0-2.0); EOSINOPHILS % (AUTO) 0.2 % (0.0-6.0); HEMATOCRIT 37 % (33-45); HEMOGLOBIN 11.5 g/dL (11.5-14.8); LYMPHOCYTES # (AUTO) 1.2 /CMM (0.8-4.8); LYMPHOCYTES % (AUTO) 6.4 % (20.0-44.0); MEAN CORPUSCULAR HEMOGLOBIN 20 PG (26.0-33.0); MEAN CORPUSCULAR HGB CONC 31 g/dl (31.0-36.0); MEAN CORPUSCULAR VOLUME 63 fL (82-100); MONOCYTES # (AUTO) 1.2 /CMM (0.1-1.30); MONOCYTES % (AUTO) 6.4 % (2.0-12.0); NEUTROPHILS # (AUTO) 15.7 /CMM (1.8-8.9); NEUTROPHILS % (AUTO) 86.9 % (43.0-81.0); PLATELET COUNT (AUTO) 343 /CMM (150-450)
[2018-03-06 07:30] LABS: CALCIUM, SERUM 8.8 mg/dL (8.5-10.1); CARBON DIOXIDE 29 mmol/L (21-32); CHLORIDE 100 mmol/L (98-107); CREATININE 0.7 mg/dL (0.6-1.3); GLUCOSE 132 mg/dL (74-106); MAGNESIUM 1.8 mg/dL (1.8-2.4); PHOSPHORUS 3.3 mg/dL (2.5-4.9); POTASSIUM 4.1 mmol/L (3.5-5.1); SODIUM SERUM 137 mmol/L (136-145); UREA NITROGEN, BLOOD 14 mg/dL (7-18)
[2018-03-06] MEDS ORDERED: ERGO500014 PO (07:33)
[2018-03-06 07:44] LABS: BAND % (MANUAL) 2 % (0.0-5.0); LYMPHOCYTES % (MANUAL) 7 % (16-48); MONOCYTES % (MANUAL) 6 % (0-11.0); NEUTROPHILS % (MANUAL) 85 (42-76)
[2018-03-06] MEDS ORDERED: FUROSEMIDE 20 MG/2 ML VIAL IV SCH (08:00)
[2018-03-06] MEDS ORDERED: ACETAMINOPHEN 325 MG TABLET PO PRN (08:00)
[2018-03-06] MEDS ORDERED: FUROSEMIDE 20 MG/2 ML VIAL IV ONE (08:00)
[2018-03-06] MEDS ORDERED: MAGNESIUM HYDROXIDE 30 ML UDC PO PRN (08:00)
[2018-03-06] MEDS ORDERED: NA PHOS,M-B/NA PHOS,DI-BA 1 EA ENEMA RC PRN (08:00)
[2018-03-06] MEDS ORDERED: BISACODYL SUPP (10 MG) 10 MG/SUPP.RECT SUPP.RECT RC PRN (08:00)
--- NOTE | 2018-03-06 08:00 | NUR ---
RN NOTES RECEIVED PATIENT IN THE BED A/O X2/3 WITH CONFUSION, PATIENT ON O2-2L NC, PATIENT HAS NO ACUTE RESPIRATORY DISTRESS. ENCOURAGED TO EXPRESS FEELINGS AND CONCERNS. SCHEDULED MEDICATION ADMINISTERED, V/S STABLE, IV LINE ON LEFT AC AREA INTACT INFUSING 1/2 NS AT 40 ML/HR INTACT, NEEDS ATTENDED AND ANTICIPATED, ASSIST TURN AND REPOSTION BUT PATIENT REFUSED, ALSO REFUSED BREAKFAST. CALL LIGHT WITHIN TIE REACH, SAFETY PRECAUTION MAINTAINED ALL THE TIME.
[2018-03-06 08:52] VITALS: BP 152/74
[2018-03-06] MEDS: ASPIRIN 81 MG TAB.CHEW PO SCH (09:29)
[2018-03-06] MEDS: ESCITALOPRAM OXALATE (10 MG) 10 MG TABLET PO SCH (09:30)
[2018-03-06] MEDS: ATORVASTATIN 40 MG TABLET PO SCH ×2 (09:37→21:29)
[2018-03-06] MEDS: AMLODIPINE BESYLATE 5 MG TABLET PO SCH ×2 (09:38→16:56)
--- NOTE | 2018-03-06 09:39 | NUR ---
RN NOTES ADMINISTERED MORPHINE 2 MG/ML IV PUSH PER PATIENT REQUEST FOR PAIN LEVEL IS 10/10 PER PAIN SCALE, V/S TAKEN BP -152/72, P-89, CALL LIGHT WITHIN TO REACH, CONTINUED MONITORING FOR SAFETY.
--- NOTE | 2018-03-06 11:30 | NUR ---
RN NOTES MEDICATION WERE ADMINISTERED FOR PAIN EFFECTIVE, NO ACUTE DISTRESS, CALL LIGHT WITHIN TO REACH, CONTINUED MONITORING.
[2018-03-06 16:00] VITALS: BP 134/70
--- NOTE | 2018-03-06 17:06 | NUR ---
RN NOTES ADMINISTERED MORPHINE 2 MG/ML IV PUSH FOR GENERALIZED PAIN 04/27 PER PATIENT REQUEST, V/S TAKEN BP -134/70, P-82. CONTINUED MONITORING.
--- NOTE | 2018-03-06 18:30 | NUR ---
RN NOTES MEDICATION WERE ADMINISTERED FOR PAIN EFFECTIVE. DAUGHTER NEXT TO THE BED, UA SPECIMEN COLLECTED, CALLED LAB FOR HAND PASTER. CALL LIGHT WITHIN TO REACH. SAFETY PRECAUTION MAINTAINED ALL THE TIME. ENDORSED ONCOMING NURSE FOR PLAN OF CARE.
--- NOTE | 2018-03-06 19:30 | NUR ---
RN NOTES CALLED [facility]THO MD SHAYDAT AND NOTIFIED PATIENT CONDITION , MD WILL SEE PATIENT ON 03/07/18.
--- NOTE | 2018-03-06 19:30 | NUR ---
RN NOTES: RECEIVED LYING COMFORTABLY IN BED, WITH DAUGHTER PRESENT AT BED SIDE, ON 02 AT 2L/MIN,IV CANNULA INTACT ON THE LEFT AC G-#18, WITH IVF OF 1/2 NS AT 40 ML/MIN ONGOING,PATIENT HAS NO SIGN OF SOB OR RESPIRATORY DISTRESS,A/OX2 WITH PERIODS OF CONFUSION, RE-ORIENT TO UNIT AND STAFF,FALL,SAFETY AND ASPIRATION PRECAUTION OBSERVE, AWAITING FOR UA RESULT,BED LOW AND LOCKED, CALL LIGHT WITHIN EASY REACH.
[2018-03-06 19:39] LABS: APPEARANCE,URINE SL CLOUDY (CLEAR); BILIRUBIN,URINE NEGATIVE (NEGATIVE); BLOOD, URINE TRACE-INTA Ery/uL (NEGATIVE); COLOR,URINE YELLOW (YELLOW); KETONES,URINE NEGATIVE (NEGATIVE); LEUKOCYTE ESTERASE ,URINE 2+ (NEGATIVE); NITRITE, URINE POSITIVE (NEGATIVE); PROTEIN,URINE NEGATIVE (NEGATIVE); UGLUCOSE NEGATIVE (NEGATIVE); UROBILINOGEN,URINE 0.2 EU/dL (0.2)
[2018-03-06 19:50] LABS: BACTERIA,URINE Many /HPF (None Seen); SQUAMOUS EPITHELIAL CELL,UR Moderate /HPF (None Seen); WBC,URINE 21-50 /HPF (0-3)
[2018-03-06 20:00] VITALS: BP 124/67
--- NOTE | 2018-03-06 21:30 | NUR ---
RN NOTES: -2056 URINE ANALYSIS RESULT IN WBC-21-50 RBC-3-5,PAGE BISTRO ATTENDANT FOR . -2119 (BISTRO ATTENDANT) CALLED BACK AND ORDER TO START ANCEF 1 GRAM Q 8 HOURS.
[2018-03-06] MEDS: CEFAZOLIN 1 GM in IV NS 0.9% 50 ML IV SCH (22:00)
[2018-03-06] MEDS ORDERED: CEFAZOLIN 1 GM ONE (22:59)
--- NOTE | 2018-03-06 23:21 | NUR ---
RN NOTES: IST DOSE OF ANCEF GIVEN.PATIENT STILL AWAKE NO COMPLAINTS OF PAIN, EXPLAINED TO HER WHY ATB/IV IS GIVEN,SHE AGREED,KEEP IN COMFORTABLE POSITION, CALL LIGHT WITHIN EASY REACH.
[2018-03-07] MEDS ORDERED: CEFAZOLIN 1 GM ONE (04:42)
--- NOTE | 2018-03-07 05:09 | NUR ---
RN NOTES: AWAKE NO COMPLAINTS OF PAIN OR DISCOMFORT, MORNING CARE DONE, CLEAN AND CHANGE,KEPT COMFORTABLE IN BED
[2018-03-07] MEDS: CEFAZOLIN 1 GM in IV NS 0.9% 50 ML IV SCH (05:58)
--- NOTE | 2018-03-07 06:52 | NUR ---
RN NOTES: MORNING CARE DONE,ABLE TO REST AND SLEEP,CALLS AND NEEDS ATTENDED, WILL CONTINUE TO MONITOR, ENDORSED FOR CONTINUITY OF CARE.
[2018-03-07 07:12] LABS: BASOPHILS % (AUTO) 0.2 % (0.0-2.0); EOSINOPHILS % (AUTO) 1.4 % (0.0-6.0); HEMATOCRIT 35 % (33-45); HEMOGLOBIN 10.9 g/dL (11.5-14.8); LYMPHOCYTES # (AUTO) 1.3 /CMM (0.8-4.8); LYMPHOCYTES % (AUTO) 7.2 % (20.0-44.0); MEAN CORPUSCULAR HEMOGLOBIN 19 PG (26.0-33.0); MEAN CORPUSCULAR HGB CONC 31 g/dl (31.0-36.0); MEAN CORPUSCULAR VOLUME 63 fL (82-100); MONOCYTES # (AUTO) 1.4 /CMM (0.1-1.30); MONOCYTES % (AUTO) 7.9 % (2.0-12.0); NEUTROPHILS # (AUTO) 14.8 /CMM (1.8-8.9); NEUTROPHILS % (AUTO) 83.3 % (43.0-81.0); PLATELET COUNT (AUTO) 308 /CMM (150-450); RED BLOOD CELL COUNT(AUTO) 5.61 MIL/uL (4.0-5.2); WHITE BLOOD COUNT (AUTO) 17.8 K/uL (4.3-11.0)
--- NOTE | 2018-03-07 07:30 | NUR ---
received pt. alert an oriented x 2,continually removing oxygen and reapplied.
[2018-03-07 07:47] LABS: ALANINE AMINOTRANSFERASE 27 U/L (12-78); ALBUMIN 3.1 g/dL (3.4-5.0); ALKALINE PHOSPHATASE 106 U/L (46-116); ASPARTATE AMINOTRANSFERASE 31 U/L (15-37); BILIRUBIN,TOTAL 1.3 mg/dL (0.2-1.0); CALCIUM, SERUM 8.7 mg/dL (8.5-10.1); CARBON DIOXIDE 27 mmol/L (21-32); CHLORIDE 98 mmol/L (98-107); CREATININE 0.7 mg/dL (0.6-1.3); GLUCOSE 134 mg/dL (74-106); MAGNESIUM 1.8 mg/dL (1.8-2.4); PHOSPHORUS 2.6 mg/dL (2.5-4.9); POTASSIUM 3.9 mmol/L (3.5-5.1); SODIUM SERUM 134 mmol/L (136-145); TOTAL PROTEIN, SERUM 7.2 g/dL (6.4-8.2); UREA NITROGEN, BLOOD 9 mg/dL (7-18)
[2018-03-07 08:00] VITALS: BP 138/69
[2018-03-07] MEDS: ESCITALOPRAM OXALATE (10 MG) 10 MG TABLET PO SCH (09:38)
[2018-03-07] MEDS: ASPIRIN 81 MG TAB.CHEW PO SCH (09:38)
--- NOTE | 2018-03-07 09:45 | NUR ---
pt. with confusion pulled out iv and restarted in rt. hand with #22 angio.
[2018-03-07 10:00] LABS: EOSINOPHILS % (MANUAL) 2 % (0-4); LYMPHOCYTES % (MANUAL) 6 % (16-48); MONOCYTES % (MANUAL) 2 % (0-11.0); NEUTROPHILS % (MANUAL) 90 (42-76)
--- NOTE | 2018-03-07 10:00 | NUR ---
dr. velasquez in as well as dr. pat,alfonso cath #16 inserted without difficulty and immediate drainage of thick milky pale yellow colored urine. pt. tolerated fairly well .denies pain when not moving. dvt pumps applied as well.
[2018-03-07] MEDS ORDERED: ENOXAPARIN SODIUM 40 MG/0.4 ML DISP.SYRIN SQ ONE (11:00)
[2018-03-07] MEDS: IV D5/ 0.9% NACL 1,000 ML IV PRN (11:43)
[2018-03-07] MEDS: ZOSYN IVPB 3.375 G in IV D5W 50ml IV SCH ×2 (12:20→20:45)
[2018-03-07 14:00] VITALS: BP 132/72
--- NOTE | 2018-03-07 15:40 | NUR ---
rn in continually and reapplying o2.pt. reoriented.very confused. pox does go to 88% after a few minutes without o2.
[2018-03-07 17:42] LABS: BASOPHILS % (AUTO) 0.3 % (0.0-2.0); EOSINOPHILS % (AUTO) 1.5 % (0.0-6.0); HEMATOCRIT 36 % (33-45); LYMPHOCYTES # (AUTO) 1.3 /CMM (0.8-4.8); LYMPHOCYTES % (AUTO) 7.8 % (20.0-44.0); MEAN CORPUSCULAR HEMOGLOBIN 19 PG (26.0-33.0); MEAN CORPUSCULAR HGB CONC 30 g/dl (31.0-36.0); MEAN CORPUSCULAR VOLUME 62 fL (82-100); MONOCYTES # (AUTO) 1.6 /CMM (0.1-1.30); MONOCYTES % (AUTO) 9.4 % (2.0-12.0); NEUTROPHILS # (AUTO) 13.5 /CMM (1.8-8.9); PLATELET COUNT (AUTO) 313 /CMM (150-450); RDW COEFFICIENT OF VARIATION 18.4 (11.5-15.0); RED BLOOD CELL COUNT(AUTO) 5.82 MIL/uL (4.0-5.2); WHITE BLOOD COUNT (AUTO) 16.7 K/uL (4.3-11.0)
--- NOTE | 2018-03-07 17:50 | NUR ---
rn walked in to room to find pt. just pulled out 2nd iv today,additionally removed tape on alfonso cath.to endorse to next shift to restart iv.o2 off again and reapplied.
[2018-03-07 18:22] LABS: EOSINOPHILS % (MANUAL) 5 % (0-4); LYMPHOCYTES % (MANUAL) 10 % (16-48); MONOCYTES % (MANUAL) 13 % (0-11.0); NEUTROPHILS % (MANUAL) 72 (42-76)
[2018-03-07] MEDS: AMLODIPINE BESYLATE 5 MG TABLET PO SCH (19:14)
--- NOTE | 2018-03-07 19:30 | NUR ---
RN MS OPENING NOTES RECEIVED PATIENT IN BED AWAKE, VERBALLY RESPONSIVE BUT CONFUSED. ALERT ONLY TO NAME. BREATHING EVEN AND UNLABORED. NO SOB NOTED. ON OXYGEN 3L VIA NC. CURRENTLY NO COMPLAINTS OF PAIN OR DISCOMFORT. NO FACIAL GRIMACING. PATIENT NOTED WITH GAYTAN CATH. INTACT AND DRAINING WELL. ALL OTHER NEEDS ATTENDED TO. CALL LIGHT WITHIN REACH. BED ON LOWEST POSITION.
[2018-03-07 20:00] VITALS: BP 132/79
[2018-03-07] MEDS: ATORVASTATIN 40 MG TABLET PO SCH (21:51)
[2018-03-07] MEDS: HYDROCODONE/APAP 5/325MG 1 EACH TABLET PO PRN (22:02)
[2018-03-08] MEDS: ZOSYN IVPB 3.375 G in IV D5W 50ml IV SCH ×5 (00:15→23:47)
[2018-03-08] MEDS: IV D5/ 0.9% NACL 1,000 ML IV PRN (05:38)
--- NOTE | 2018-03-08 06:29 | NUR ---
RN MS CLOSING NOTES PATIENT IN BED ASLEEP - IN STABLE CONDITION, VERBALLY RESPONSIVE BUT CONFUSED WHEN AWAKE. ALERT ONLY TO NAME. BREATHING EVEN AND UNLABORED. NO SOB NOTED. ON OXYGEN 3L VIA NC. NO COMPLAINTS OF PAIN OR DISCOMFORT. NO FACIAL GRIMACING NOTED. IV ON RIGHT HAND #33 INTACT AND PATENT. CURRENTLY RUNNING D5NS @ 75ML/HR. PATIENT WITH GAYTAN CATH. INTACT AND DRAINING WELL. ALL OTHER NEEDS ATTENDED TO. KEPT CLEAN, DRY, AND COMFORTABLE. CALL LIGHT WITHIN REACH. BED ON LOWEST POSITION. WILL ENDORSE TO ONCOMING RN FOR CONTINUITY OF CARE.
--- NOTE | 2018-03-08 07:00 | NUR ---
RN OPENING NOTES RECEIVED PT. IN BED A&OX1, PT. WAS REORIENTED TO TIME, AND PLACE. BREATHING UNLABORED, AND EVENLY ON OXYGEN AT 3L/MIN VIA NASAL CANNULA. NO S/S OF ACUTE DISTRESS. PT.DENIES PAIN. IV FLUIDS RUNNING AT 75 ML/HR. GAYTAN CATHETER HAS 150 CC OF CLEAR AND YELLOW URINE. DVT PUMPS ARE ON WORKING. BED IS IN LOWEST, AND LOCKED POSITION. 2 SIDE RAILS UP, AND CALL LIGHT WITHIN REACH. ALL NEEDS MET. WILL CONTINUE TO ASSESS AND MONITOR.
[2018-03-08 08:00] VITALS: BP 126/76
[2018-03-08 08:01] LABS: EOSINOPHILS % (AUTO) 3.5 % (0.0-6.0); HEMATOCRIT 33 % (33-45); HEMOGLOBIN 10.3 g/dL (11.5-14.8); LYMPHOCYTES # (AUTO) 1.5 /CMM (0.8-4.8); MEAN CORPUSCULAR HEMOGLOBIN 19 PG (26.0-33.0); MEAN CORPUSCULAR HGB CONC 31 g/dl (31.0-36.0); MEAN CORPUSCULAR VOLUME 62 fL (82-100); MONOCYTES # (AUTO) 1.7 /CMM (0.1-1.30); MONOCYTES % (AUTO) 12.8 % (2.0-12.0); NEUTROPHILS # (AUTO) 9.9 /CMM (1.8-8.9); NEUTROPHILS % (AUTO) 72.7 % (43.0-81.0); PLATELET COUNT (AUTO) 280 /CMM (150-450); RDW COEFFICIENT OF VARIATION 18.2 (11.5-15.0); RED BLOOD CELL COUNT(AUTO) 5.37 MIL/uL (4.0-5.2); WHITE BLOOD COUNT (AUTO) 13.7 K/uL (4.3-11.0)
[2018-03-08 08:09] LABS: CALCIUM, SERUM 8.3 mg/dL (8.5-10.1); CARBON DIOXIDE 29 mmol/L (21-32); CHLORIDE 102 mmol/L (98-107); CREATININE 0.8 mg/dL (0.6-1.3); GLUCOSE 118 mg/dL (74-106); MAGNESIUM 1.7 mg/dL (1.8-2.4); POTASSIUM 3.4 mmol/L (3.5-5.1); SODIUM SERUM 136 mmol/L (136-145); UREA NITROGEN, BLOOD 10 mg/dL (7-18)
[2018-03-08] MEDS: ASPIRIN 81 MG TAB.CHEW PO SCH (08:19)
[2018-03-08] MEDS: ESCITALOPRAM OXALATE (10 MG) 10 MG TABLET PO SCH (08:19)
[2018-03-08] MEDS ORDERED: POTASSIUM CHLORIDE 20 MEQ TAB.PRT.SR PO SCH (09:00)
[2018-03-08] MEDS ORDERED: POTASSIUM CHLORIDE 20 MEQ POWDER PACKET PO SCH (10:00)
[2018-03-08] MEDS: Magnesium 1GM/D5W 100ML PREMIX 100 ML IV SCH ×2 (10:03→12:03)
--- NOTE | 2018-03-08 10:08 | NUR ---
POTASSIUM PO 20 MEQ WAS CHANGED TO KLOR-CON POWDER PACKET.
--- NOTE | 2018-03-08 10:27 | NUR ---
NEW ORDER GIVEN BY DR. CANADA FOR A ONE TIME ORDER NOW FOR LOVENOX 40 MG SUBQ.
[2018-03-08] MEDS: HYDROCODONE/APAP 5/325MG 1 EACH TABLET PO PRN ×2 (12:18→18:36)
[2018-03-08] MEDS: Potassium Chloride 40 MEQ in IV D5/ 0.9% NACL 1,000 ML IV PRN (15:09)
[2018-03-08 16:12] VITALS: BP 117/63
[2018-03-08] MEDS: AMLODIPINE BESYLATE 5 MG TABLET PO SCH (17:16)
--- NOTE | 2018-03-08 18:56 | NUR ---
RN OPENING NOTES PT. IN BED A&OX1, CONFUSED. BREATHING UNLABORED, AND EVENLY ON ROOM AIR. NO S/S OF ACUTE DISTRESS. PT.DENIES PAIN. IV FLUIDS RUNNING AT 75 ML/HR. GAYTAN CATHETER HAD OUTPUT OF CLEAR AND YELLOW URINE. DVT PUMPS ARE ON WORKING. BED IS IN LOWEST, AND LOCKED POSITION. 2 SIDE RAILS UP, AND CALL LIGHT WITHIN REACH. ALL NEEDS MET. WILL ENDORSE REPORT TO NURSE. Addendum: 03/08/18 at 1900 by NAMITA CHOUDHARY RN CORRECTION:CLOSING NOTES ...
[2018-03-08] MEDS ORDERED: ENOXAPARIN SODIUM 40 MG/0.4 ML DISP.SYRIN SQ ONE (19:00)
--- NOTE | 2018-03-08 19:30 | NUR ---
RN MS OPENING NOTES PATIENT BED AWAKE- IN STABLE CONDITION. ALERT AND ORIENTED X1, VERBALLY RESPONSIVE. BREATHING EVEN AND UNLABORED. NO SOB NOTED. ON OXYGEN 3L VIA NC. NO COMPLAINTS OF PAIN OR DISCOMFORT. NO FACIAL GRIMACING NOTED. IV ON RIGHT HAND #22 INTACT AND PATENT. CURRENTLY RUNNING POTASSIUM CHLORIDE 40 MEQ IN D5 NS @ 75ML/HR. PATIENT WITH GAYTAN CATH. INTACT AND DRAINING WELL. ALL OTHER NEEDS ATTENDED TO. KEPT CLEAN, DRY, AND COMFORTABLE. CALL LIGHT WITHIN REACH. BED ON LOWEST POSITION. WILL CONTINUE TO MONITOR.
[2018-03-08 20:03] VITALS: BP 114/70
[2018-03-08] MEDS: ATORVASTATIN 40 MG TABLET PO SCH (21:20)
--- NOTE | 2018-03-09 04:00 | NUR ---
RN MS NOTES PATIENT PULLED OUT IV. WAS ABLE TO INSERT A NEW ON THE RIGHT HAND #22.
[2018-03-09] MEDS: ZOSYN IVPB 3.375 G in IV D5W 50ml IV SCH ×2 (05:38→12:31)
[2018-03-09] MEDS: Potassium Chloride 40 MEQ in IV D5/ 0.9% NACL 1,000 ML IV PRN (05:46)
--- NOTE | 2018-03-09 06:48 | NUR ---
RN MS NOTES SPOKE WITH INA (DAUGHTER) ON THE PHONE AND CLARIFIED WITH THER THAT PATIENT WILL NOT HAVE SURGERY HERE. SHE WOULD LIKE FURTHER CARE AT [facility].
--- NOTE | 2018-03-09 06:54 | NUR ---
RN MS CLOSING NOTES PATIENT BED AWAKE- IN STABLE CONDITION. ALERT AND ORIENTED X1, VERBALLY RESPONSIVE. BREATHING EVEN AND UNLABORED. NO SOB NOTED. ON OXYGEN 3L VIA NC. NO COMPLAINTS OF PAIN OR DISCOMFORT. NO FACIAL GRIMACING NOTED. IV ON RIGHT HAND #22 INTACT AND PATENT. CURRENTLY RUNNING POTASSIUM CHLORIDE 40 MEQ IN D5 NS @ 75ML/HR. PATIENT WITH GAYTAN CATH. INTACT AND DRAINING WELL. ALL OTHER NEEDS ATTENDED TO. KEPT CLEAN, DRY, AND COMFORTABLE. CALL LIGHT WITHIN REACH. BED ON LOWEST POSITION. WILL ENDORSE TO ONCOMING NURSE FOR CONTINUITY OF CARE..
--- NOTE | 2018-03-09 07:37 | NUR ---
RN OPENING NOTES RECEIVED PT. IN BED A&OX1, PT. WAS REORIENTED TO TIME, AND PLACE. PT. DENIES PAIN. BREATHING UNLABORED, AND EVENLY ON OXYGEN AT 3L/MIN VIA NASAL CANNULA, PT. REMOVES NASAL CANNULA FREQUENTLY. NO S/S OF ACUTE DISTRESS. IV FLUIDS RUNNING AT 75 ML/HR. GAYTAN CATHETER HAS 50 CC OF CLEAR AND YELLOW URINE. DVT PUMPS ARE ON WORKING. BED IS IN LOWEST, AND LOCKED POSITION. 2 SIDE RAILS UP, AND CALL LIGHT WITHIN REACH. ALL NEEDS MET. WILL CONTINUE TO ASSESS AND MONITOR. PER NURSE REPORT PT.'S DAUGHTER WANTS TO TRANSFER HER MOTHER TO [facility] FOR SURGICAL PROCEDURE AND DID NOT SIGN CONSENT, IS AWARE, AND WILL CONTINUE TO KEEP PT. NPO FOR POSSIBLE SURGERY TODAY AT [facility].
[2018-03-09 08:00] VITALS: BP 130/67
[2018-03-09] MEDS: ESCITALOPRAM OXALATE (10 MG) 10 MG TABLET PO SCH (09:00)
[2018-03-09] MEDS: ASPIRIN 81 MG TAB.CHEW PO SCH (09:00)
[2018-03-09 09:15] VITALS: BP 130/67
--- NOTE | 2018-03-09 12:52 | NUR ---
PER LAB, UNABLE TO DRAW BLOOD FROM PT. DUE TO DIFFICULTY WITH DRAWING BLOOD. CARGO SERVICE AGENT WILL RETRY AGAIN AFTER 1:30 PM.
--- NOTE | 2018-03-09 12:54 | NUR ---
PER MD PT. WILL NOT HAVE SURGERY HERE TODAY, AND PT. CAN RESUME PREVIOUS DIET, AND CONTINUE LOVENOX 40 MG, SUBQ, Q24HS. PT. WILL BE TRANSFERRING TO [facility] FOR SURGERY.
[2018-03-09 16:00] VITALS: BP 127/77
[2018-03-09] MEDS ORDERED: CEFTRIAXONE 1 G in IV D5W 50 ML IV SCH (16:00)
[2018-03-09 16:16] LABS: BASOPHILS % (AUTO) 0.3 % (0.0-2.0); EOSINOPHILS % (AUTO) 4.3 % (0.0-6.0); HEMATOCRIT 34 % (33-45); HEMOGLOBIN 10.4 g/dL (11.5-14.8); LYMPHOCYTES # (AUTO) 1.2 /CMM (0.8-4.8); LYMPHOCYTES % (AUTO) 8.4 % (20.0-44.0); MEAN CORPUSCULAR HEMOGLOBIN 19 PG (26.0-33.0); MEAN CORPUSCULAR HGB CONC 31 g/dl (31.0-36.0); MEAN CORPUSCULAR VOLUME 62 fL (82-100); MONOCYTES # (AUTO) 1.5 /CMM (0.1-1.30); MONOCYTES % (AUTO) 10.4 % (2.0-12.0); NEUTROPHILS # (AUTO) 11.2 /CMM (1.8-8.9); NEUTROPHILS % (AUTO) 76.6 % (43.0-81.0); PLATELET COUNT (AUTO) 293 /CMM (150-450); RDW COEFFICIENT OF VARIATION 17.8 (11.5-15.0); RED BLOOD CELL COUNT(AUTO) 5.44 MIL/uL (4.0-5.2); WHITE BLOOD COUNT (AUTO) 14.6 K/uL (4.3-11.0)
[2018-03-09 16:20] LABS: CALCIUM, SERUM 8.4 mg/dL (8.5-10.1); CARBON DIOXIDE 26 mmol/L (21-32); CHLORIDE 100 mmol/L (98-107); CREATININE 0.7 mg/dL (0.6-1.3); GLUCOSE 142 mg/dL (74-106); MAGNESIUM 1.8 mg/dL (1.8-2.4); PHOSPHORUS 2.7 mg/dL (2.5-4.9); POTASSIUM 3.8 mmol/L (3.5-5.1); SODIUM SERUM 136 mmol/L (136-145); UREA NITROGEN, BLOOD 10 mg/dL (7-18)
[2018-03-09] MEDS: AMLODIPINE BESYLATE 5 MG TABLET PO SCH (18:06)
[2018-03-09] MEDS: HYDROCODONE/APAP 5/325MG 1 EACH TABLET PO PRN (18:07)
[2018-03-09] MEDS: Magnesium 1GM/D5W 100ML PREMIX 100 ML IV SCH ×2 (18:17→18:23)
[2018-03-09] MEDS: POTASSIUM CHLORIDE 20 MEQ TAB.PRT.SR PO SCH ×3 (18:17→18:23)
[2018-03-09] MEDS ORDERED: ENOXAPARIN SODIUM 40 MG/0.4 ML DISP.SYRIN SQ SCH (19:00)
--- NOTE | 2018-03-09 19:20 | NUR ---
MS RN OPENING NOTES: RECEIVED PT IN BED AND IS A/OX1 TO NAME. PT HAS SCD PUMPS. PT HAS IV ABX INFUSING. BED ALARM ACTIVATED. PT HAS NC BUT KEEPS REMOVING IT FROM TIME TO TIME. PT HAS GAYTAN CATH AND IS ATTACHED TO DRAINAGE BAG WITH YELLOW URINE DRAINING. CALL LIGHT WITHIN PT'S REACH. BED KEPT IN LOW, LOCKED POSITION, AND SIDE RAILS X 3UP. WILL CONTINUE TO MONITOR PT.
--- NOTE | 2018-03-09 19:25 | NUR ---
RN CLOSING NOTES PT. IN BED A&OX1, CONFUSED. PT. WAS REORIENTED TO TIME, AND PLACE. PT. DENIES PAIN. BREATHING UNLABORED, AND EVENLY ON OXYGEN AT 3L/MIN VIA NASAL CANNULA, PT. REMOVES NASAL CANNULA FREQUENTLY. NO S/S OF ACUTE DISTRESS. IV ANTIBIOTICS FINISHED RUNNING. GAYTAN CATHETER HAD 1500 CC OF CLEAR AND YELLOW URINE. DVT PUMPS ARE ON WORKING. BED IS IN LOWEST, AND LOCKED POSITION. 2 SIDE RAILS UP, AND CALL LIGHT WITHIN REACH. ALL NEEDS MET. WILL ENDORSE REPORT TO NURSE.
--- NOTE | 2018-03-09 19:30 | NUR ---
MS WARE NOTES: WAS ENDORSED BY AM NURSE THAT PT IS NOT TO HAVE SURGERY ANYMORE OVER HERE. WILL IGNORE MISC ORDER. Addendum: 03/09/18 at 2012 by DARRYL CHRISTIANSON RN ALSO PER ENDORSEMENT THAT OK TO GIVE LOVENOX DOSE SCHEDULED FOR TONIGHT PER DR. CANA[place].
[2018-03-09 20:00] VITALS: BP 140/70
--- NOTE | 2018-03-09 20:57 | NUR ---
MS RN NOTES: CALLED DR. Radha TUCKER'S OFFICE AND REQUESTING FOR PRELIM DISCHARGE SUMMARY. WILL RELAY TO DR. SNELL.
--- NOTE | 2018-03-09 21:06 | NUR ---
MS RN NOTES: SPOKE WITH DR. SNELL AND INFORMED HIM THAT DRY SAND MOLDER FROM [facility], [place], CALLED AND SAID THAT A BED IS PENDING. IN ORDER FOR PT TO OBTAIN THE BED ONCE IT IS AVAILABLE, A PRELIMINARY DISCHARGE SUMMARY NEEDS TO BE DONE AND FAXED OVER TO THEM. EXPLAINED TO DR. SNELL ABOUT THIS. HE IS AWARE AND MAY BE DONE AFTER MIDNIGHT.
[2018-03-09] MEDS: ATORVASTATIN 40 MG TABLET PO SCH (21:37)
--- NOTE | 2018-03-10 00:53 | NUR ---
MS RN NOTES: SPOKE WITH ETHAN, TRANSFER CENTER COORDINATOR, FROM [facility] AND SHE MENTIONED THAT THEY DO NOT HAVE AN ACCEPTING DOCTOR RIGHT NOW AND PT NEEDS FINANCIAL CLEARANCE FIRST. PHONE NUMBER STRICTLY FOR NURSES AND DOCTORS TO GET IN TOUCH WITH HER IS [phone]
[2018-03-10 05:25] VITALS: BP 141/71
[2018-03-10] MEDS: HYDROCODONE/APAP 5/325MG 1 EACH TABLET PO PRN (05:28)
--- NOTE | 2018-03-10 05:28 | NUR ---
MS RN NOTES: PT COMPLAINING OF PAIN AFTER BED BATH WAS DONE AND REPOSITIONING. PT SCREAMING AND FACIAL GRIMACING. PT ADMINISTERED NORCO 5. WILL CONTINUE TO MONITOR.
--- NOTE | 2018-03-10 06:07 | NUR ---
MS RN NOTES: CALLED PT'S DAUGHTER JANESSA. NO EXHIBIT ELECTRICIAN. WANT TO SEE IF DAUGHTER IS OK WITH EITHER/OR HOSPITAL FOR TRANSFER FOR EITHER [facility] OR [facility]. WILL TRY AGAIN AT ANOTHER TIME.
--- NOTE | 2018-03-10 06:14 | NUR ---
MS RN NOTES: MAXIMO BUCKLEY DTR, . SPOKE WITH HER. SHE DOES NOT WANT HER MOTHER TO GO TO [facility]. SHE ONLY WANTS THE TRANSFER TO BE FOR [facility] ALL HER DOCTORS ARE AT [facility]. WILL ENDORSE TO AM NURSE.
--- NOTE | 2018-03-10 06:17 | NUR ---
MS RN CLOSING NOTES: ALL NEEDS WERE ATTENDED AND ANTICIPATED FOR. PT IS ASLEEP AT THIS TIME. PT ON 2LPM VIA NC AND IS TOLERATING WELL. PT HAS GAYTAN CATH AND IS ATTACHED TO DRAINAGE BAG WITH YELLOW URINE DRAINING. OUTPUT WAS 1200ML. PT HAS R HAND #20G AND IS PATENT AND INTACT. CURRENTLY S/L. COVERED WITH KERLIX FOR SAFETY. CALL LIGHT WITHIN PT'S REACH. BED ALARM ACTIVATED. BED KEPT IN LOW, LOCKED POSITION, AND SIDE RAILS X 3 UP. WILL ENDORSE TO AM NURSE FOR TASNEEM.
--- NOTE | 2018-03-10 06:26 | NUR ---
MS RN NOTES: SPOKE WITH ETHAN, [facility] COORDINATOR, FOR AN UPDATED. PT STILL NEEDS TO GO FOR FINANCIAL CLEARANCE. THEY WILL GIVE US A CALL ONCE PT IS CLEARED. PT IS ALREADY ON LIST.
--- NOTE | 2018-03-10 07:46 | NUR ---
MS RN OPENING NOTE RECEIVED BEDSIDE SBAR REPORT ON THE PATIENT. PATIENT IS AWAKE, ORIENTED TO SELF, CONFUSED AT TIMES, FORGETFUL. AWAKE AND RESPONSIVE IN BED. BED IS LOCKED IN LOWEST POSITION, SIDE RAILS UP X3, BED ALARM IS ON. CALL LIGHT WITHIN REACH. EDUCATED PATIENT TO CALL FOR ASSISTANCE USING THE CALL LIGHT. PATIENT VERBALIZED UNDERSTANDING. DENIES PAIN AT THIS TIME. CHEST RISING EQUALLY, BILATERALLY. ALL NEEDS ARE MET. WILL CONTINUE TO ASSES/MONITOR THROUGHOUT THE SHIFT.
[2018-03-10 08:00] VITALS: BP 137/76
[2018-03-10] MEDS ORDERED: ERGOCALCIFEROL (VITAMIN D 2) 50,000 UNIT CAPSULE PO SCH (08:00)
[2018-03-10] MEDS: ASPIRIN 81 MG TAB.CHEW PO SCH (08:33)
[2018-03-10] MEDS: ESCITALOPRAM OXALATE (10 MG) 10 MG TABLET PO SCH (08:34)
--- NOTE | 2018-03-10 08:35 | NUR ---
documented previous shift's missed medications as non-administered to rid of the red reminder
--- NOTE | 2018-03-10 11:59 | NUR ---
PATIENT'S DAUGHTER IS AT THE BEDSIDE. PATIENT'S DAUGHTER WANTS TO TAKE THE PATIENT TO [facility], AND IS TAKING HER OUT OF THE HOSPITAL AGAINST MEDICAL ADVICE. PER DR MALIK SANCHEZ, OK TO LEAVE THE GAYTAN CATHETER UPON AMA. IV CATHETER REMOVED WITH THE TIP INTACT. OCLUSIVE DRESSING APPLIED. NO EVIDENCE OF BLEEDING PRESENT. ALL BELONGING ACCOUNTED FOR. PATIENT'S DAUGHTER SIGNED THE BELONGINGS LIST. EDUCATIONAL MATERIAL AND CD WITH THE IMAGING PROVIDED TO THE DAUGHTER. PATIENT WILL BE PICKED UP BY AMBULANCE. AWAITING FOR THE AMBULANCE. RISKS AND BENEFITS DISCUSSED WITH THE PATIENT/DAUGHTER AT THE BEDSIDE.
--- NOTE | 2018-03-10 13:00 | NUR ---
Patient left the hospital premises in stable condition via ambulance. Patient left AMA. IV catheter removed with the tip intact.
[2018-03-10 13:12] LABS: CALCITRIOL VIT D,1, 25 DIHYDRO 59.7 pg/mL (19.9-79.3)
== END 2018-03-10 13:10 | disposition left against medical advice (07) | DRG 535 ==
LOC: ER 19:30 → MED 21:53
PROVIDERS: ADMIT Internal Medicine; ATTEND Internal Medicine Nephrology
DX: S72.012A Unspecified intracapsular fracture of left femur, initial encounter for closed fracture (principal); G93.40 Encephalopathy, unspecified; I21.A1 Myocardial infarction type 2; N39.0 Urinary tract infection, site not specified; W06.XXXA Fall from bed, initial encounter; Y92.122 Bedroom in nursing home as the place of occurrence of the external cause; I10 Essential (primary) hypertension; F03.90 Unspecified dementia, unspecified severity, without behavioral disturbance, psychotic disturbance, mood disturbance, and anxiety; F32.9 Major depressive disorder, single episode, unspecified; Z91.018 Allergy to other foods; Z79.82 Long term (current) use of aspirin; Z79.899 Other long term (current) drug therapy; D64.9 Anemia, unspecified; I25.10 Atherosclerotic heart disease of native coronary artery without angina pectoris; S01.91XA Laceration without foreign body of unspecified part of head, initial encounter; E87.6 Hypokalemia; E55.9 Vitamin D deficiency, unspecified; I35.0 Nonrheumatic aortic (valve) stenosis; D72.829 Elevated white blood cell count, unspecified; Z95.1 Presence of aortocoronary bypass graft; Z86.73 Personal history of transient ischemic attack (TIA), and cerebral infarction without residual deficits; Z85.3 Personal history of malignant neoplasm of breast
CPT/HCPCS: 36415; 70450-TC; 71045-TC; 73502; 73700-TC; 76641-TC; 80048-TC; 80053-TC; 81000-TC; 82306; 82652; 83735-TC; 83970; 84100-TC; 84484-TC; 85025-TC; 85730-TC; 87040-TC; 87081-TC; 87086-TC; 87186-TC; 93307-TC; 93970-TC; A4216; A4606; J0690; J0696; J1650; J1940; J2270; J2543; J3475; J3480; J3490; J7042; J7060; Z7610

== ENCOUNTER 2019-04-09 10:27 | Inpatient (IN) | payer MEDICARE, MEDICAID ==
[~2019-04-09 10:27] MED LIST changes: -ACET-2605 PO; -AMLO5TAB2 PO; +AMLO5TAB9 PO; +BISA10SU11 RC; -BISA10SU8 RC; +ERGO500014 PO
[2019-04-09] MEDS ORDERED: AMIO200T4 PO (10:54)
[2019-04-09] MEDS ORDERED: FERR325T23 PO (10:54)
[2019-04-09] MEDS ORDERED: ATOR20TA PO (10:54)
[2019-04-09] MEDS ORDERED: SENN-168 PO (10:54)
[2019-04-09] MEDS ORDERED: CRAN3875 PO (10:54)
[2019-04-09] MEDS ORDERED: TYL2T PO (10:54)
[2019-04-09] MEDS ORDERED: CRAN450C PO (10:54)
[2019-04-09] MEDS ORDERED: DONE5TAB7 PO (10:54)
[2019-04-09] MEDS ORDERED: APIX2.5T PO (10:54)
[2019-04-09] MEDS ORDERED: MIRT15TA PO (10:54)
[2019-04-09] MEDS ORDERED: PIPERACILLIN /TAZOBACTAM 3.375 G in IV D5W 50 ML IV ONE (11:00)
[2019-04-09] MEDS ORDERED: IV NS 0.9% 1,000 ML BAG IV ONE (11:00)
[2019-04-09] MEDS ORDERED: VANCOMYCIN 1 GM in IV D5W 250 ML IV ONE (11:00)
[2019-04-09] MEDS ORDERED: VANCOMYCIN 1 GM VIAL ONE (11:04)
[2019-04-09] MEDS ORDERED: PIPERACILLIN /TAZOBACTAM 3.375 G VIAL IV ONE (11:04)
[2019-04-09] MEDS ORDERED: ACETAMINOPHEN 650 MG/SUPP.RECT RC ONE ×2 (11:13→11:30)
[2019-04-09] MEDS ORDERED: IV NS 0.9% 1,000 ML IV ONE (11:30)
[2019-04-09] MEDS ORDERED: IV NS 0.9% 250 ML IV ONE (11:30)
[2019-04-09] MEDS ORDERED: DIGOXIN INJ 0.5 MG/2 ML AMPUL IV SCH ×2 (12:00→18:10)
[2019-04-09] MEDS ORDERED: NA PHOS,M-B/NA PHOS,DI-BA 1 EA ENEMA RC PRN (15:30)
[2019-04-09] MEDS ORDERED: HYDROCODONE/APAP 5/325MG 1 EACH TABLET PO PRN (15:30)
[2019-04-09] MEDS ORDERED: ONDANSETRON HCL/PF 4 MG/2 ML VIAL IVP PRN (15:30)
[2019-04-09] MEDS ORDERED: Z GUARD REMEDY 2 OZ OINT TP PRN (15:30)
[2019-04-09] MEDS ORDERED: BISACODYL SUPP (10 MG) 10 MG/SUPP.RECT SUPP.RECT RC PRN (15:30)
[2019-04-09] MEDS ORDERED: ACETAMINOPHEN 325 MG TABLET PO PRN ×2 (15:30)
[2019-04-09] MEDS ORDERED: ZOLPIDEM TARTRATE 5 MG TABLET PO PRN (15:30)
[2019-04-09] MEDS ORDERED: LIDOCAINE 1% INJ 50 ML MDV IJ ONE (16:00)
[2019-04-09] MEDS: APIXABAN 2.5 MG TABLET PO SCH (18:02)
[2019-04-09] MEDS: DIGOXIN INJ 0.5 MG/2 ML AMPUL IV SCH (21:08)
[2019-04-09] MEDS: SENNOSIDES 8.6 MG TABLET PO SCH (22:00)
[2019-04-09] MEDS: DONEPEZIL 5 MG TABLET PO SCH (22:07)
[2019-04-09] MEDS: MIRTAZAPINE 15 MG TABLET PO SCH (22:07)
[2019-04-10] MEDS: DIGOXIN INJ 0.5 MG/2 ML AMPUL IV SCH (03:00)
[2019-04-10] MEDS ORDERED: AMIODARONE 900 MG in IV D5W 500 ML IV PRN (07:30)
[2019-04-10] MEDS ORDERED: AMIODARONE 150 MG in IV D5W 100 ML IV ONE (07:30)
[2019-04-10] MEDS: FUROSEMIDE 40 MG/4 ML VIAL IV SCH ×3 (08:10→15:32)
[2019-04-10] MEDS: APIXABAN 2.5 MG TABLET PO SCH ×2 (08:10→17:47)
[2019-04-10] MEDS ORDERED: AMIODARONE 900 MG in IV D5W 482 ML IV PRN (08:30)
[2019-04-10] MEDS ORDERED: AMIODARONE HCL 200 MG TABLET PO SCH (09:00)
[2019-04-10] MEDS: Magnesium 1GM/D5W 100ML PREMIX 100 ML IV SCH ×2 (11:23→12:30)
[2019-04-10] MEDS ORDERED: PIPERACILLIN /TAZOBACTAM 3.375 G in IV D5W 50 ML IV ONE (17:30)
[2019-04-10] MEDS: MICAFUNGIN SODIUM 100 MG in IV NS 0.9% 100 ML IV SCH (18:16)
[2019-04-10] MEDS: MIRTAZAPINE 15 MG TABLET PO SCH (22:00)
[2019-04-10] MEDS: SENNOSIDES 8.6 MG TABLET PO SCH (22:00)
[2019-04-10] MEDS: DONEPEZIL 5 MG TABLET PO SCH (22:00)
[2019-04-10] MEDS: ATORVASTATIN 10 MG TABLET PO SCH (22:00)
[2019-04-10] MEDS: PIPERACILLIN /TAZOBACTAM 3.375 G in IV D5W 100 ML IV SCH (22:50)
[2019-04-11] MEDS: Magnesium 1GM/D5W 100ML PREMIX 100 ML IV SCH ×2 (05:40→06:49)
[2019-04-11] MEDS: PIPERACILLIN /TAZOBACTAM 3.375 G in IV D5W 100 ML IV SCH ×3 (06:14→21:49)
[2019-04-11] MEDS: POTASSIUM CL. PREMIX PERIPHER. 50 ML IV SCH ×4 (08:24→12:00)
[2019-04-11] MEDS: APIXABAN 2.5 MG TABLET PO SCH ×2 (09:45→16:41)
[2019-04-11] MEDS ORDERED: POTASSIUM CHLORIDE 20 MEQ TAB.PRT.SR PO SCH (10:00)
[2019-04-11] MEDS: AMIODARONE HCL 200 MG TABLET PO SCH ×3 (10:07→16:40)
[2019-04-11] MEDS: POTASSIUM CHLORIDE 20 MEQ POWDER PACKET PO SCH ×5 (11:01→15:06)
[2019-04-11] MEDS ORDERED: NEUTRA PHOS 1 POWD.PACKET PO ONE (12:30)
[2019-04-11] MEDS: MICAFUNGIN SODIUM 100 MG in IV NS 0.9% 100 ML IV SCH (17:49)
[2019-04-11] MEDS ORDERED: IV NS 0.9% 1,000 ML BAG IV PRN (19:00)
[2019-04-11] MEDS ORDERED: IV NS 0.9% 1,000 ML IV SCH (20:00)
[2019-04-11] MEDS: DONEPEZIL 5 MG TABLET PO SCH (21:38)
[2019-04-11] MEDS: ATORVASTATIN 10 MG TABLET PO SCH (21:38)
[2019-04-11] MEDS: MIRTAZAPINE 15 MG TABLET PO SCH (21:38)
[2019-04-11] MEDS: SENNOSIDES 8.6 MG TABLET PO SCH (21:38)
[2019-04-12] MEDS: Magnesium 1GM/D5W 100ML PREMIX 100 ML IV SCH ×2 (06:06→07:06)
[2019-04-12] MEDS: PIPERACILLIN /TAZOBACTAM 3.375 G in IV D5W 100 ML IV SCH ×3 (06:06→22:01)
[2019-04-12] MEDS: FUROSEMIDE 40 MG/4 ML VIAL IV SCH ×3 (06:06→14:26)
[2019-04-12] MEDS: APIXABAN 2.5 MG TABLET PO SCH ×2 (09:08→17:17)
[2019-04-12] MEDS: AMIODARONE HCL 200 MG TABLET PO SCH ×3 (09:08→17:15)
[2019-04-12] MEDS: MICAFUNGIN SODIUM 100 MG in IV NS 0.9% 100 ML IV SCH (17:37)
[2019-04-12] MEDS: SENNOSIDES 8.6 MG TABLET PO SCH (21:16)
[2019-04-12] MEDS: MIRTAZAPINE 15 MG TABLET PO SCH (21:17)
[2019-04-12] MEDS: ATORVASTATIN 10 MG TABLET PO SCH (21:17)
[2019-04-12] MEDS: DONEPEZIL 5 MG TABLET PO SCH (21:17)
[2019-04-13] MEDS: PIPERACILLIN /TAZOBACTAM 3.375 G in IV D5W 100 ML IV SCH ×3 (07:21→23:03)
[2019-04-13] MEDS: POTASSIUM CHLORIDE 20 MEQ TAB.PRT.SR PO SCH ×3 (08:32→10:21)
[2019-04-13] MEDS: Magnesium 1GM/D5W 100ML PREMIX 100 ML IV SCH ×2 (08:33→10:21)
[2019-04-13] MEDS: AMIODARONE HCL 200 MG TABLET PO SCH ×3 (08:34→17:38)
[2019-04-13] MEDS: APIXABAN 2.5 MG TABLET PO SCH ×2 (08:35→17:40)
[2019-04-13] MEDS: DIGOXIN INJ 0.5 MG/2 ML AMPUL IV SCH ×3 (12:12→23:04)
[2019-04-13] MEDS: MICAFUNGIN SODIUM 100 MG in IV NS 0.9% 100 ML IV SCH (17:40)
[2019-04-13] MEDS: MIRTAZAPINE 15 MG TABLET PO SCH (22:18)
[2019-04-13] MEDS: SENNOSIDES 8.6 MG TABLET PO SCH (22:18)
[2019-04-13] MEDS: ATORVASTATIN 10 MG TABLET PO SCH (22:18)
[2019-04-13] MEDS: DONEPEZIL 5 MG TABLET PO SCH (22:18)
[2019-04-14] MEDS: PIPERACILLIN /TAZOBACTAM 3.375 G in IV D5W 100 ML IV SCH ×3 (06:09→22:08)
[2019-04-14] MEDS: AMIODARONE HCL 200 MG TABLET PO SCH ×3 (08:46→17:09)
[2019-04-14] MEDS: APIXABAN 2.5 MG TABLET PO SCH ×2 (08:47→17:10)
[2019-04-14] MEDS: FUROSEMIDE 40 MG/4 ML VIAL IV SCH ×3 (09:05→17:10)
[2019-04-14] MEDS: DIGOXIN 0.25 MG TABLET PO SCH (13:26)
[2019-04-14] MEDS: MICAFUNGIN SODIUM 100 MG in IV NS 0.9% 100 ML IV SCH (17:11)
[2019-04-14] MEDS: ATORVASTATIN 10 MG TABLET PO SCH (21:00)
[2019-04-14] MEDS: SENNOSIDES 8.6 MG TABLET PO SCH (21:00)
[2019-04-14] MEDS: DONEPEZIL 5 MG TABLET PO SCH (21:00)
[2019-04-14] MEDS: MIRTAZAPINE 15 MG TABLET PO SCH (21:00)
[2019-04-15] MEDS: PIPERACILLIN /TAZOBACTAM 3.375 G in IV D5W 100 ML IV SCH ×2 (07:08→14:30)
[2019-04-15] MEDS: AMIODARONE HCL 200 MG TABLET PO SCH ×3 (08:19→16:37)
[2019-04-15] MEDS: APIXABAN 2.5 MG TABLET PO SCH ×2 (08:20→16:39)
[2019-04-15] MEDS ORDERED: POTASSIUM CHLORIDE 20 MEQ TAB.PRT.SR PO SCH (10:00)
[2019-04-15] MEDS: DIGOXIN 0.25 MG TABLET PO SCH (12:18)
[2019-04-15] MEDS: SENNOSIDES 8.6 MG TABLET PO SCH (21:03)
[2019-04-15] MEDS: DONEPEZIL 5 MG TABLET PO SCH (21:03)
[2019-04-15] MEDS: ATORVASTATIN 10 MG TABLET PO SCH (21:03)
[2019-04-15] MEDS: MIRTAZAPINE 15 MG TABLET PO SCH (21:03)
[2019-04-16] MEDS: APIXABAN 2.5 MG TABLET PO SCH ×2 (08:50→17:40)
[2019-04-16] MEDS: AMIODARONE HCL 200 MG TABLET PO SCH ×3 (08:50→17:35)
[2019-04-16] MEDS: POTASSIUM CHLORIDE 20 MEQ TAB.PRT.SR PO SCH ×4 (10:21→14:44)
[2019-04-16] MEDS: DIGOXIN 0.25 MG TABLET PO SCH (13:00)
[2019-04-16] MEDS: SENNOSIDES 8.6 MG TABLET PO SCH (22:21)
[2019-04-16] MEDS: MIRTAZAPINE 15 MG TABLET PO SCH (22:21)
[2019-04-16] MEDS: ATORVASTATIN 10 MG TABLET PO SCH (22:21)
[2019-04-16] MEDS: DONEPEZIL 5 MG TABLET PO SCH (22:21)
[2019-04-17] MEDS: AMIODARONE HCL 200 MG TABLET PO SCH ×3 (08:29→16:45)
[2019-04-17] MEDS: APIXABAN 2.5 MG TABLET PO SCH ×2 (08:29→16:46)
[2019-04-17] MEDS ORDERED: POTASSIUM CHLORIDE 20 MEQ TAB.PRT.SR PO SCH (09:00)
[2019-04-17] MEDS ORDERED: POTASSIUM CHLORIDE 20 MEQ POWDER PACKET GT ONE (09:30)
[2019-04-17] MEDS: DIGOXIN 0.25 MG TABLET PO SCH (13:03)
[2019-04-23] MEDS ORDERED: CEPH-569 PO (08:31)
[2019-04-23] MEDS ORDERED: AMIO200T7 PO (08:31)
[2019-04-23] MEDS ORDERED: ATOR10TA PO (08:31)
== END 2019-04-17 19:00 | DRG 871 ==
DX: A41.9 Sepsis, unspecified organism (principal); G92 Toxic encephalopathy; R65.21 Severe sepsis with septic shock; I50.23 Acute on chronic systolic (congestive) heart failure; J96.01 Acute respiratory failure with hypoxia; J69.0 Pneumonitis due to inhalation of food and vomit; I21.A1 Myocardial infarction type 2; E44.0 Moderate protein-calorie malnutrition; D68.59 Other primary thrombophilia; E87.0 Hyperosmolality and hypernatremia; B37.49 Other urogenital candidiasis; E87.2 Acidosis; N39.0 Urinary tract infection, site not specified; Z68.1 Body mass index [BMI] 19.9 or less, adult; N17.9 Acute kidney failure, unspecified; E83.42 Hypomagnesemia; E87.6 Hypokalemia; Z79.01 Long term (current) use of anticoagulants; Z95.1 Presence of aortocoronary bypass graft; I25.10 Atherosclerotic heart disease of native coronary artery without angina pectoris; F03.90 Unspecified dementia, unspecified severity, without behavioral disturbance, psychotic disturbance, mood disturbance, and anxiety; I27.20 Pulmonary hypertension, unspecified; I35.0 Nonrheumatic aortic (valve) stenosis; D63.8 Anemia in other chronic diseases classified elsewhere; B96.1 Klebsiella pneumoniae [K. pneumoniae] as the cause of diseases classified elsewhere; E88.09 Other disorders of plasma-protein metabolism, not elsewhere classified; L89.150 Pressure ulcer of sacral region, unstageable; L89.890 Pressure ulcer of other site, unstageable; S90.822A Blister (nonthermal), left foot, initial encounter; S90.821A Blister (nonthermal), right foot, initial encounter; X58.XXXA Exposure to other specified factors, initial encounter; Y93.9 Activity, unspecified; Y92.129 Unspecified place in nursing home as the place of occurrence of the external cause; C50.919 Malignant neoplasm of unspecified site of unspecified female breast; I48.91 Unspecified atrial fibrillation; I11.0 Hypertensive heart disease with heart failure

== ENCOUNTER 2019-04-19 13:03 | Inpatient (IN) | payer MEDICARE, MEDICAID ==
[~2019-04-19] VITALS: Ht 162.6 cm; Wt 61.2 kg
[~2019-04-19 13:03] MED LIST changes: +AMIO200T4 PO; -AMLO5TAB9 PO; +APIX2.5T PO; -ASPI-1169 PO; +ATOR20TA PO; -ATOR40TA PO; +CRAN3875 PO; +CRAN450C PO; +DONE5TAB7 PO; -ERGO500014 PO; -ESCI10TA PO; +FERR325T23 PO; +MIRT15TA PO; +SENN-168 PO; +TYL2T PO
--- NOTE | 2019-04-19 13:15 | NUR ---
BIB [facility] FOR ELEVATED DIGOXIN LEVEL 4.1. PATIENT A/OX1, CONFUSED, BREATHING EVEN AND UNLABORED, NO DISTRESS NOTED. HR 67 ON THE MONITOR. BP STABLE. DR. RAJAN AT BEDSIDE. PATIENT WITH TEMP OF 100.6 RECTAL.
[2019-04-19] MEDS ORDERED: MULT-661 PO (13:26)
[2019-04-19] MEDS ORDERED: PROT946L PO (13:26)
[2019-04-19] MEDS ORDERED: DIGO250T PO (13:26)
[2019-04-19] MEDS ORDERED: PIPERACILLIN /TAZOBACTAM 3.375 G in IV D5W 50 ML IV ONE (13:30)
[2019-04-19] MEDS ORDERED: VANCOMYCIN 1 GM in IV D5W 250 ML IV ONE (13:30)
[2019-04-19] MEDS ORDERED: IV NS 0.9% 1,000 ML BAG IV ONE (13:30)
--- NOTE | 2019-04-19 13:30 | NUR ---
BLOOD DRAWN SENT TO LAB.
[2019-04-19 13:44] LABS: BASOPHILS % (AUTO) 0.2 % (0.0-2.0); EOSINOPHILS % (AUTO) 0.4 % (0.0-6.0); HEMATOCRIT 37 % (33-45); HEMOGLOBIN 11.3 g/dL (11.5-14.8); LYMPHOCYTES # (AUTO) 1.9 /CMM (0.8-4.8); LYMPHOCYTES % (AUTO) 10.7 % (20.0-44.0); MEAN CORPUSCULAR HGB CONC 31 g/dl (31.0-36.0); MEAN CORPUSCULAR VOLUME 62 fL (82-100); MONOCYTES # (AUTO) 2.1 /CMM (0.1-1.30); MONOCYTES % (AUTO) 11.9 % (2.0-12.0); NEUTROPHILS # (AUTO) 13.6 /CMM (1.8-8.9); NEUTROPHILS % (AUTO) 76.8 % (43.0-81.0); PLATELET COUNT (AUTO) 410 /CMM (150-450); RED BLOOD CELL COUNT(AUTO) 5.96 MIL/uL (4.0-5.2); WHITE BLOOD COUNT (AUTO) 17.7 K/uL (4.3-11.0)
[2019-04-19 13:54] LABS: APPEARANCE,URINE Clear (CLEAR); BILIRUBIN,URINE SMALL (NEGATIVE); BLOOD, URINE Large Ery/uL (NEGATIVE); KETONES,URINE Trace (NEGATIVE); LEUKOCYTE ESTERASE ,URINE Small (NEGATIVE); NITRITE, URINE Negative (NEGATIVE); PH,URINE 5.5 (5.0-8.0); PROTEIN,URINE 100 mg/dl (NEGATIVE); UGLUCOSE Negative (NEGATIVE); UROBILINOGEN,URINE 0.2 EU/dL (0.2)
[2019-04-19 13:57] LABS: COLOR,URINE AMBER (YELLOW)
[2019-04-19 14:00] LABS: BACTERIA,URINE Few /HPF (None Seen); SQUAMOUS EPITHELIAL CELL,UR Moderate /HPF (None Seen)
[2019-04-19 14:09] LABS: CALCIUM, SERUM 8.9 mg/dL (8.5-10.1); CARBON DIOXIDE 32 mmol/L (21-32); CHLORIDE 109 mmol/L (98-107); CREATININE 1.1 mg/dL (0.6-1.3); GLUCOSE 144 mg/dL (74-106); POTASSIUM 4.3 mmol/L (3.5-5.1); SODIUM SERUM 147 mmol/L (136-145); UREA NITROGEN, BLOOD 33 mg/dL (7-18)
[2019-04-19 14:16] LABS: BILIRUBIN,DIRECT 0.2 mg/dL (0.0-0.2); BILIRUBIN,TOTAL 0.5 mg/dL (0.2-1.0)
[2019-04-19 14:17] LABS: ALANINE AMINOTRANSFERASE 61 U/L (12-78); ALBUMIN 2.4 g/dL (3.4-5.0); ALKALINE PHOSPHATASE 81 U/L (46-116); ASPARTATE AMINOTRANSFERASE 53 U/L (15-37); TOTAL PROTEIN, SERUM 7.4 g/dL (6.4-8.2)
--- NOTE | 2019-04-19 15:31 | NUR ---
REPORT GIVEN TO DASIA RN FOR TASNEEM. PATIENT SLEEPING, NO DISTRESS NOTED. VITALS STABLE.
--- NOTE | 2019-04-19 16:03 | NUR ---
RN OPENING NOTES Patient received on room air, no sob noted, no s/s of pain at this time. Left FA #18 remains patent at this time. Bed at the lowest setting, call light within reach. Patient is on a tele monitor.
--- NOTE | 2019-04-19 16:11 | NUR ---
PATIENT TRANSFERRED TO ROOM 304-1 VIA ACLS PROTOCOL. NO DISTRESS NOTED.
--- NOTE | 2019-04-19 16:20 | NUR ---
NUTRITION PROFESSOR NOTES patient received on room air, no sob noted, forearm #18 remains patent. Photos taken and is filed on the chart. Patient is on telemetry at this time. Bed at the lowest setting, call light within reach.
--- NOTE | 2019-04-19 18:19 | NUR ---
RN CLOSING NOTES patient received on room air, no sob noted, forearm #18 remains patent. Photos taken and is filed on the chart. Patient is on telemetry at this time. Bed at the lowest setting, call light within reach. Bed at the lowest setting, call light within reach, side rails up x2. Will give report to NOC RN for TASNEEM bedside.
[2019-04-19 18:55] VITALS: BP 117/60
--- NOTE | 2019-04-19 19:10 | NUR ---
TELE/RN OPENING NOTES PT RECEIVED ASLEEP, RESPONSIVE TO NAME. A/OX1. ON ROOM AIR, BREATHING EVEN AND UNLABORED. NO S/S OF SOB OR ACUTE RESPIRATORY DISTRESS. DENIES PAIN. IV TO LEFT HAND PATENT AND INTACT. BED IN LOW/LOCKED POSITION WITH CALL LIGHT IN REACH. HOB ELEVATED. SIDE RAILS UPX3 AND BED ALARM ON FOR SAFETY. WILL NEED TO PAGE MD FOR ADMITTING ORDERED. WILL CONTINUE TO MONITOR
[2019-04-19 20:00] VITALS: BP 129/76
--- NOTE | 2019-04-19 20:42 | NUR ---
TELE/RN NOTES PAGED DRAPERY INSPECTOR DR. TUCKER FOR ADMITTING ORDERS
--- NOTE | 2019-04-19 21:00 | NUR ---
TELE/RN NOTES RECEIVED CALL BACK FROM DR. TUCKER. WITH VERBAL ORDERS: CONTINUE ALL HOME MEDS EXCEPT DIGOXIN CBC, BMP, MAG, PHOS IN AM D5NS @70ML/HR AWARE THAT PT WAS SEEN BY ID AND HAS MERREM ON BOARD. ALL ORDERS READBACK FOR VERIFICATION. NO ADDITIONAL ORDERS AT THIS TIME. WILL SEE PT IN THE MORNING.
[2019-04-19] MEDS ORDERED: MEROPENEM 500 MG VIAL IV ONE (21:41)
[2019-04-19] MEDS: MEROPENEM 500 MG in IV NS 0.9% 50 ML IV SCH (21:44)
[2019-04-19] MEDS: ATORVASTATIN 10 MG TABLET PO SCH (21:45)
[2019-04-19] MEDS: IV D5/ 0.9% NACL 1,000 ML IV PRN (21:47)
[2019-04-19] MEDS ORDERED: DONEPEZIL 5 MG TABLET PO SCH (22:00)
[2019-04-19] MEDS ORDERED: MIRTAZAPINE 15 MG TABLET PO SCH (22:00)
[2019-04-19] MEDS ORDERED: SENNOSIDES 8.6 MG TABLET PO SCH (22:00)
[2019-04-20] VITALS: BP 125/70
[2019-04-20 04:00] VITALS: BP_SYST 122; BP_SYST 125; BP_DIAS 53; BP_DIAS 70
[2019-04-20] MEDS ORDERED: MEROPENEM 500 MG VIAL IV ONE (05:37)
[2019-04-20] MEDS: MEROPENEM 500 MG in IV NS 0.9% 50 ML IV SCH (05:39)
--- NOTE | 2019-04-20 06:39 | NUR ---
TELE/RN CLOSING NOTES PT ASLEEP, RESPONSIVE TO NAME. A/OX1. ON ROOM AIR, BREATHING EVEN AND UNLABORED. NO S/S OF SOB OR PAIN AT THIS TIME. 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 IV TO LFA PATENT AND INTACT RUNNING IVF ORDERED. TURNED/REPOSITIONED Q2H. HEELS OFFLOADED. BED IN LOW/LOCKED POSITION WITH CALL LIGHT IN REACH. HOB ELEVATED. SEMI FOWLERS, BILAT. UPPER SIDE RAILS IN PLACE. BED ALARM ON FOR SAFETY. WILL ENDORSE TO DAY SHIFT RN TASNEEM.
[2019-04-20 07:14] LABS: BASOPHILS # (AUTO) 0.1 /CMM (0.0-0.2); BASOPHILS % (AUTO) 0.7 % (0.0-2.0); EOSINOPHILS % (AUTO) 2.2 % (0.0-6.0); HEMATOCRIT 33 % (33-45); HEMOGLOBIN 9.8 g/dL (11.5-14.8); LYMPHOCYTES # (AUTO) 1.8 /CMM (0.8-4.8); LYMPHOCYTES % (AUTO) 13.4 % (20.0-44.0); MEAN CORPUSCULAR HGB CONC 30 g/dl (31.0-36.0); MEAN CORPUSCULAR VOLUME 63 fL (82-100); MONOCYTES # (AUTO) 1.6 /CMM (0.1-1.30); MONOCYTES % (AUTO) 12.2 % (2.0-12.0); NEUTROPHILS # (AUTO) 9.4 /CMM (1.8-8.9); NEUTROPHILS % (AUTO) 71.5 % (43.0-81.0); PLATELET COUNT (AUTO) 315 /CMM (150-450); RED BLOOD CELL COUNT(AUTO) 5.13 MIL/uL (4.0-5.2); WHITE BLOOD COUNT (AUTO) 13.2 K/uL (4.3-11.0)
[2019-04-20 07:16] LABS: CALCIUM, SERUM 7.9 mg/dL (8.5-10.1); CREATININE 0.8 mg/dL (0.6-1.3); MAGNESIUM 1.9 mg/dL (1.8-2.4); PHOSPHORUS 2.3 mg/dL (2.5-4.9); POTASSIUM 3.4 mmol/L (3.5-5.1)
[2019-04-20] MEDS ORDERED: ACETAMINOPHEN 325 MG TABLET PO PRN (07:30)
[2019-04-20] MEDS ORDERED: MISCELLANEOUS MED 1 EA EA XX ONE ×2 (07:30)
[2019-04-20] MEDS ORDERED: BISACODYL SUPP (10 MG) 10 MG/SUPP.RECT SUPP.RECT RC PRN (07:30)
[2019-04-20] MEDS ORDERED: NA PHOS,M-B/NA PHOS,DI-BA 1 EA ENEMA RC PRN (07:30)
[2019-04-20] MEDS ORDERED: ACETAMINOPHEN ES 500 MG TABLET PO PRN (07:30)
--- NOTE | 2019-04-20 07:40 | NUR ---
SCHOOL BUS DRIVER OPENING NOTES RECEIVED PATIENT IN BED ALERT AND AWAKE, ORIENTED X1. ABLE TO FOLLOW SIMPLE COMMANDS. HOB ELEVATED. DENIES ANY C/O PAIN NOR DISCOMFORT AT THIS TIME. ON TELE MONITORING: SR 68 WITH 1ST DEGREE AV BLOCK, BBB,PVC AND DEPRESSED ST. LFA # 18 INTACT AND PATENT INFUSING D2NS @ 70ML/HR ANNETTE WELL. BED IN LOWEST POSITION, LOCKED. BED ALARM ON. CALL LIGHT WITHIN REACH. BED SIDERAILS UP X2.
[2019-04-20 08:00] VITALS: BP 118/71
[2019-04-20 08:36] LABS: EOSINOPHILS % (MANUAL) 1 % (0-4); LYMPHOCYTES % (MANUAL) 16 % (16-48); MONOCYTES % (MANUAL) 11 % (0-11.0); NEUTROPHILS % (MANUAL) 72 (42-76)
[2019-04-20] MEDS ORDERED: POTASSIUM PHOSPHATE MM 15 MMOL in IV D5W 250 ML IV SCH (09:30)
[2019-04-20] MEDS: MULTIVITAMINS,THERAGRAN 1 UDTAB TABLET PO SCH (09:43)
[2019-04-20] MEDS: FERROUS SULFATE (325 MG) 325 MG/TAB TABLET PO SCH (09:44)
[2019-04-20] MEDS: AMIODARONE HCL 200 MG TABLET PO SCH ×2 (09:44→17:37)
[2019-04-20] MEDS: PROSOURCE / PROSTAT (PYXIS) 30 ML UDC PO SCH (09:45)
[2019-04-20] MEDS: APIXABAN 2.5 MG TABLET PO SCH ×2 (09:55→17:38)
[2019-04-20] MEDS: IV D5/ 0.9% NACL 1,000 ML IV PRN (10:17)
[2019-04-20] MEDS: POTASSIUM PHOSPHATE MM 7.5 MMOL in IV D5W 100 ML IV SCH ×2 (10:37→13:32)
--- NOTE | 2019-04-20 11:40 | NUR ---
PAPER CONTROL CLERK NOTE RELAYED TO DR. EDMONDS NA LEVEL OF 151 AND PATIENT IS CURRENTLY ON D5 NS @ 70ML/HR. PER DR. EDMONDS, HE WILL LOOK AT IT.
[2019-04-20] MEDS: IV D5/0.45 NACL 1,000 ML IV SCH (12:00)
[2019-04-20] MEDS: MEROPENEM 1 G in IV NS 0.9% 100 ML IV SCH ×2 (12:35→23:00)
[2019-04-20 16:00] VITALS: BP 121/57
--- NOTE | 2019-04-20 18:55 | NUR ---
AIR ROUTE CONTROLLER CLOSING NOTES PATIENT ASLEEP IN BED BUT AROUSABLE. HOB ELEVATED. ABLE TO FOLLOW SIMPLE COMMANDS. DENIES ANY C/O PAIN NOR DISCOMFORT AT THIS TIME. RFA #22 INTACT AND PATENT INFUSING D5 1/2 NS @ 50ML/HR ANNETTE WELL. LT HAND #24 SL INTACT AND PATENT. BED IN LOWEST POSITION, LOCKED. BED ALARM ON. CALL LIGHT WITHIN REACH. BED SIDERAILS UP X2. IN NO APPARENT DISTRESS.
--- NOTE | 2019-04-20 19:33 | NUR ---
DEMO COORDINATOR OPENING NOTES: RECEIVED PT ON ROOM AIR AND IS TOLERATING WELL. NO SOB NOTED. NO S/S OF DISTRESS. PT APPEARS TO BE APHASIC. PT IS A/OX1 AND IS AWAKE. PT ON TELE MONITOR AND READING SHOWS SR WITH FIRST DEGREE AV BLOCK BBB 64. PT HAS IV ON L FOREARM #18G AND IS PATENT AND INTACT AND IS BEING INFUSED WITH IV D5 1/2 NS AT 50ML/HR. PT ALSO HAS ANOTHER IV ON L HAND #24G AND IS PATENT AND INTACT. CURRENTLY H/L. BED ALARM ACTIVATED. BED KEPT IN LOW, LOCKED POSITION, AND SIDE RAILS X 2UP. WILL CONTINUE TO MONITOR PT. Addendum: 04/20/19 at 2050 by DARRYL CHRISTIANSON RN IVS ARE R FOREARM #22G AND L HAND #24G
[2019-04-20 20:38] VITALS: BP 121/58
[2019-04-20] MEDS: MIRTAZAPINE 15 MG TABLET PO SCH (21:01)
[2019-04-20] MEDS: DONEPEZIL 5 MG TABLET PO SCH (21:01)
[2019-04-20] MEDS: ATORVASTATIN 10 MG TABLET PO SCH (21:01)
[2019-04-20] MEDS: SENNOSIDES 8.6 MG TABLET PO SCH (21:02)
[2019-04-20] MEDS ORDERED: MAGNESIUM HYDROXIDE 30 ML UDC PO PRN (22:00)
[2019-04-21] VITALS: BP 122/62
[2019-04-21 04:00] VITALS: BP_SYST 115; BP_SYST 124; BP_DIAS 65; BP_DIAS 72
--- NOTE | 2019-04-21 06:28 | NUR ---
BOAT PATCHER PLASTIC CLOSING NOTES: ALL NEEDS WERE ATTENDED AND ANTICIPATED FOR. PT KEPT CLEAN, DRY, AND COMFORTABLE. PT TURNED AND REPOSITIONED Q2HRS. WOUND TX PERFORMED ORDERED. PT IS A/OX1. PT APPEARS TO BE CONTRACTED. PT REORIENTED PRN. PT ON ROOM AIR AND TOLERATING WELL. PT ON TELE BOX AND READING SHOWS SR 66 1ST DEGREE WITH BBB AND PVCS. PT HAS IV ON R FOREARM #22G AND IS BEING INFUSED WITH IV D5 1/2 NS AT 50ML/HR. PT ALSO HAS ANOTHER IV ON L HAND #24 G AND IS PATENT AND INTACT. CURRENTLY H/L. BED KEPT IN LOW, LOCKED POSITION, AND SIDE RAILS X 2UP. WILL ENDORSE TO AM NURSE FOR TASNEEM.
[2019-04-21 07:23] LABS: BASOPHILS # (AUTO) 0.1 /CMM (0.0-0.2); BASOPHILS % (AUTO) 0.6 % (0.0-2.0); EOSINOPHILS % (AUTO) 1.8 % (0.0-6.0); HEMATOCRIT 31 % (33-45); HEMOGLOBIN 9.7 g/dL (11.5-14.8); LYMPHOCYTES # (AUTO) 1.5 /CMM (0.8-4.8); LYMPHOCYTES % (AUTO) 12.5 % (20.0-44.0); MEAN CORPUSCULAR HGB CONC 31 g/dl (31.0-36.0); MEAN CORPUSCULAR VOLUME 63 fL (82-100); MONOCYTES # (AUTO) 1.3 /CMM (0.1-1.30); NEUTROPHILS # (AUTO) 8.9 /CMM (1.8-8.9); NEUTROPHILS % (AUTO) 74.1 % (43.0-81.0); PLATELET COUNT (AUTO) 280 /CMM (150-450); RED BLOOD CELL COUNT(AUTO) 4.99 MIL/uL (4.0-5.2)
--- NOTE | 2019-04-21 07:37 | NUR ---
MS RN NOTES WITH ORDER FROM DR. HAINES TO D/C TELEMETRY.
[2019-04-21 07:38] LABS: BILIRUBIN,TOTAL 0.5 mg/dL (0.2-1.0); CALCIUM, SERUM 8.2 mg/dL (8.5-10.1); CREATININE 0.8 mg/dL (0.6-1.3); MAGNESIUM 1.7 mg/dL (1.8-2.4); PHOSPHORUS 2.3 mg/dL (2.5-4.9); POTASSIUM 3.6 mmol/L (3.5-5.1)
--- NOTE | 2019-04-21 07:45 | NUR ---
ELECTRONIC SCANNER OPERATOR OPENING NOTES RECEIVED PATIENT IN BED ASLEEP, AROUSABLE. HOB ELEVATED. ALERT AND ORIENTED X1. NO SOB OBSERVED. DENIES ANY C/O PAIN NOR DISCOMFORT. RFA #22 SL INTACT AND PATENT INFUSING D5 1/2 NS @ 50ML/HR. LT HAND #24 SL INTACT AND PATENT. BED IN LOWEST POSITION, LOCKED. BED ALARM ON. CALL LIGHT WITHIN REACH.
[2019-04-21 08:00] VITALS: BP 121/69
[2019-04-21 08:10] LABS: FERRITIN 551 ng/mL (8-388); IRON, SERUM 24 ug/dl (50-175); TOTAL IRON BINDING CAPACITY 115 ug/dl (250-450)
[2019-04-21] MEDS: IV D5/0.45 NACL 1,000 ML IV SCH (08:28)
[2019-04-21] MEDS: MULTIVITAMINS,THERAGRAN 1 UDTAB TABLET PO SCH (08:28)
[2019-04-21] MEDS: AMIODARONE HCL 200 MG TABLET PO SCH ×2 (08:28→17:41)
[2019-04-21] MEDS: FERROUS SULFATE (325 MG) 325 MG/TAB TABLET PO SCH (08:29)
[2019-04-21] MEDS: PROSOURCE / PROSTAT (PYXIS) 30 ML UDC PO SCH (08:29)
[2019-04-21] MEDS: APIXABAN 2.5 MG TABLET PO SCH ×2 (08:32→17:41)
[2019-04-21] MEDS ORDERED: K PHOS NEUTRAL 250 MG TABLET PO ONE (09:00)
[2019-04-21] MEDS: Magnesium 1GM/D5W 100ML PREMIX 100 ML IV SCH ×2 (10:15→11:38)
[2019-04-21] MEDS ORDERED: IV D5/0.45 NACL 1,000 ML IV PRN (10:30)
[2019-04-21] MEDS: MEROPENEM 1 G in IV NS 0.9% 100 ML IV SCH ×2 (12:44→23:11)
[2019-04-21 16:00] VITALS: BP 148/71
--- NOTE | 2019-04-21 19:00 | NUR ---
MS RN CLOSING NOTES PATIENT IN BED, ALERT AND AWAKE X1. PATIENT CONFUSED. HOB ELEVATED. NO SOB. PATIENT REQUIRES ENCOURAGEMENT DURING MEALS, SLOW EATER. DENIES ANY C/O PAIN NOR DISCOMFORT AT THIS TIME. WOUND CARE RENDERED ANNETTE WELL. LAC # 20 D5 1/2 NS INFUSING AT 50ML/HR ANNETTE WELL. LEFT HAND SL # 24 INTACT AND PATENT. REMAINS STABLE AT THIS TIME. BED IN LOWEST POSITION, LOCKED. BED SIDERAILS UPX2. CALL LIGHT WITHIN REACH. IN NO APPARENT DISTRESS.
--- NOTE | 2019-04-21 19:10 | NUR ---
MS RN NOTES RECEIVED PT IN BED ASLEEP BUT EASILY AWOKEN VERBALLY OR BY TOUCH. PT A/O 1 WITH PERIODS OF CONFUSION. RESPIRATIONS EVEN AND UNLABORED WITH NO S/S OF ACUTE DISTRESS OR SOB NOTED. HOB ELEVATED. INFORMED THAT PT REQUIRES ENCOURAGEMENT DURING MEALS PT IS SLOW EATER. NO COMPLAINTS OF PAIN AT THIS TIME. PT WITH LAC # 20 D5 1/2 NS INFUSING AT 50ML/HR TOLERATING WELL. PT ALSO WITH LHAND #24G SL PATENT AND INTACT. SAFETY MEASURES IN PLACE WITH BED IN LOWEST LOCKED POSITION WITH SIDE RAILS UP X2. CALL LIGHT WITHIN REACH. WILL CONTINUE TO MONITOR.
[2019-04-21 20:00] VITALS: BP 114/65
[2019-04-21] MEDS: DONEPEZIL 5 MG TABLET PO SCH (21:21)
[2019-04-21] MEDS: ATORVASTATIN 10 MG TABLET PO SCH (21:21)
[2019-04-21] MEDS: MIRTAZAPINE 15 MG TABLET PO SCH (21:21)
[2019-04-21] MEDS: SENNOSIDES 8.6 MG TABLET PO SCH (21:21)
--- NOTE | 2019-04-22 07:16 | NUR ---
MS RN OPENING NOTES RECEIVED PATIENT IN BED, ALERT AND AWAKE ORIENTED X1. HOB ELEVATED. NO SOB OBSERVED. DENIES ANY C/O PAIN NOR DISCOMFORT AT THIS TIME. LAC # 20 INTACT AND PATENT INFUSING D5 1/2 NS AT 50 ML/HR ANNETTE WELL. BED IN LOWEST POSITION, LOCKED. BED SIDERAILS UP X2. CALL LIGHT WITHIN REACH. RESTING COMFORTABLY IN BED.
--- NOTE | 2019-04-22 07:25 | NUR ---
MS RN CLOSING NOTES PT IN BED SLEEPING BUT EASILY AWOKEN VERBALLY OR BYT TOUCH. PT A/O X1 WITH PERIODS OF CONFUSION. RESPIRATIONS EVEN AND UNLABORED WITH NO S/S OF ACUTE DISTRESS OR SOB NOTED THROUGHOUT SHIFT. HOB ELEVATED. PT WITH LAC # 20 D5 1/2 NS INFUSING AT 50ML/HR ANNETTE WELL. LEFT HAND SL # 24 PATENT AND INTACT. SAFETY MEASURES IN PLACE WITH BED IN LOWEST LOCKED POSITION WITH SIDE RAILS UP X2. CALL LIGHT WITHIN REACH. WILL ENDORSE TO ONCOMING NURSE FOR TASNEEM.
--- NOTE | 2019-04-22 07:28 | NUR ---
MS RN NOTES PT KEPT CLEAN, DRY, AND COMFORTABLE. TURNED PT Q2 HRS THROUGHOUT SHIFT.
[2019-04-22 08:00] VITALS: BP 135/66
[2019-04-22] MEDS: FERROUS SULFATE (325 MG) 325 MG/TAB TABLET PO SCH (09:21)
[2019-04-22] MEDS: AMIODARONE HCL 200 MG TABLET PO SCH ×2 (09:21→16:08)
[2019-04-22] MEDS: MULTIVITAMINS,THERAGRAN 1 UDTAB TABLET PO SCH (09:22)
[2019-04-22] MEDS: APIXABAN 2.5 MG TABLET PO SCH ×2 (09:22→16:08)
[2019-04-22] MEDS: PROSOURCE / PROSTAT (PYXIS) 30 ML UDC PO SCH (09:23)
[2019-04-22] MEDS: MEROPENEM 1 G in IV NS 0.9% 100 ML IV SCH (11:35)
[2019-04-22 12:41] LABS: BASOPHILS # (AUTO) 0.1 /CMM (0.0-0.2); BASOPHILS % (AUTO) 0.5 % (0.0-2.0); EOSINOPHILS % (AUTO) 3.3 % (0.0-6.0); HEMATOCRIT 34 % (33-45); HEMOGLOBIN 10.3 g/dL (11.5-14.8); LYMPHOCYTES # (AUTO) 1.3 /CMM (0.8-4.8); LYMPHOCYTES % (AUTO) 11.2 % (20.0-44.0); MEAN CORPUSCULAR HGB CONC 31 g/dl (31.0-36.0); MEAN CORPUSCULAR VOLUME 62 fL (82-100); MONOCYTES # (AUTO) 1.3 /CMM (0.1-1.30); MONOCYTES % (AUTO) 11.3 % (2.0-12.0); NEUTROPHILS # (AUTO) 8.6 /CMM (1.8-8.9); NEUTROPHILS % (AUTO) 73.7 % (43.0-81.0); PLATELET COUNT (AUTO) 251 /CMM (150-450); RED BLOOD CELL COUNT(AUTO) 5.38 MIL/uL (4.0-5.2); WHITE BLOOD COUNT (AUTO) 11.7 K/uL (4.3-11.0)
[2019-04-22 13:04] LABS: BILIRUBIN,TOTAL 0.4 mg/dL (0.2-1.0); CALCIUM, SERUM 7.8 mg/dL (8.5-10.1); CREATININE 0.7 mg/dL (0.6-1.3); MAGNESIUM 1.8 mg/dL (1.8-2.4); PHOSPHORUS 1.9 mg/dL (2.5-4.9); POTASSIUM 3.3 mmol/L (3.5-5.1); TOTAL PROTEIN, SERUM 6.1 g/dL (6.4-8.2)
[2019-04-22 16:03] VITALS: BP 117/60
--- NOTE | 2019-04-22 18:17 | NUR ---
MS RN CLOSING NOTES ALERT AND ORIENTED X1, VERBALLY RESPONSIVE. ABLE TO FOLLOW SIMPLE COMMANDS AND MAKE SIMPLE NEEDS KNOWN. HOB ELEVATED. NO SOB OBSERVED. DENIES ANY C/O PAIN NOR DISCOMFORT AT THIS TIME. LAC # 20 INTACT AND PATENT INFUSING D5 1/2 NS AT 50 ML/HR ANNETTE WELL. WOUND CARE DONE ANNETTE WELL. TURNED AND REPOSITION Q 2 HRS AND OFFLOADING OF EXTREMITIES. BED IN LOWEST POSITION, LOCKED. BED SIDERAILS UP X2. CALL LIGHT WITHIN REACH. RESTING COMFORTABLY IN BED.
--- NOTE | 2019-04-22 19:30 | NUR ---
RECEIVED PATIENT IN BED AWAKE. AO X 1, ABLE TO COMMUNICATED BASIC NEEDS. NO ACUTE DISTRESS NOTED. NO SIGNS OF PAIN NOTED. IV SITE PATENT, INTACT; IVF INFUSING ORDERED. ON LOW BED WITH BILATERAL UPPER SIDE RAILS UP. CALL IBARRA WITHIN EASY REACH. WILL CONTINUE TO MONITOR.
[2019-04-22 20:00] VITALS: BP 119/63
[2019-04-22] MEDS: ATORVASTATIN 10 MG TABLET PO SCH (21:17)
[2019-04-22] MEDS: SENNOSIDES 8.6 MG TABLET PO SCH (21:17)
[2019-04-22] MEDS: MIRTAZAPINE 15 MG TABLET PO SCH (21:17)
[2019-04-22] MEDS: DONEPEZIL 5 MG TABLET PO SCH (21:17)
[2019-04-23] MEDS: MEROPENEM 1 G in IV NS 0.9% 100 ML IV SCH ×2 (00:19→12:14)
--- NOTE | 2019-04-23 06:10 | NUR ---
PATIENT ASLEEP, EASILY AROUSABLE. RESPIRATIONS EVEN. NO SIGNS OF PAIN NOTED. DUE MED GIVEN WITH NO ASE NOTED. IVF INFUSING ORDERED. KEPT CLEAN AND DRY. TURNED AND REPOSITIONED Q 2 HOURS. SAFETY PRECAUTIONS AND COMFORT MEASURES IN PLACE. WILL GIVE REPORT TO DAY SHIFT FOR CONTINUITY OF CARE.
[2019-04-23 07:00] VITALS: BP 106/56
--- NOTE | 2019-04-23 07:31 | NUR ---
RN MS OPENING NOTES Patient received on room air, no sob noted. patient easily arousable. Patient a/o x 1-2. Left AC #20 d5 1/2 NS 50 mL per hour infusing at this time. Pain denies pain at this time. Bed at the lowest setting, call light within reach.
[2019-04-23] MEDS ORDERED: ATOR10TA PO (08:31)
[2019-04-23] MEDS ORDERED: AMIO200T7 PO (08:31)
[2019-04-23] MEDS ORDERED: CEPH-569 PO (08:31)
[2019-04-23] MEDS: MULTIVITAMINS,THERAGRAN 1 UDTAB TABLET PO SCH (08:44)
[2019-04-23] MEDS: FERROUS SULFATE (325 MG) 325 MG/TAB TABLET PO SCH (08:44)
[2019-04-23 08:50] VITALS: BP 105/63
[2019-04-23] MEDS: APIXABAN 2.5 MG TABLET PO SCH (08:50)
[2019-04-23] MEDS: PROSOURCE / PROSTAT (PYXIS) 30 ML UDC PO SCH (08:50)
[2019-04-23] MEDS: AMIODARONE HCL 200 MG TABLET PO SCH (08:50)
[2019-04-23 10:54] LABS: BASOPHILS # (AUTO) 0.1 /CMM (0.0-0.2); BASOPHILS % (AUTO) 0.6 % (0.0-2.0); EOSINOPHILS % (AUTO) 3.5 % (0.0-6.0); HEMATOCRIT 35 % (33-45); HEMOGLOBIN 10.5 g/dL (11.5-14.8); LYMPHOCYTES # (AUTO) 1.2 /CMM (0.8-4.8); LYMPHOCYTES % (AUTO) 11.1 % (20.0-44.0); MEAN CORPUSCULAR HGB CONC 31 g/dl (31.0-36.0); MEAN CORPUSCULAR VOLUME 63 fL (82-100); MONOCYTES # (AUTO) 1.2 /CMM (0.1-1.30); MONOCYTES % (AUTO) 10.2 % (2.0-12.0); NEUTROPHILS # (AUTO) 8.4 /CMM (1.8-8.9); NEUTROPHILS % (AUTO) 74.6 % (43.0-81.0); PLATELET COUNT (AUTO) 259 /CMM (150-450); WHITE BLOOD COUNT (AUTO) 11.3 K/uL (4.3-11.0)
[2019-04-23 11:12] LABS: ALBUMIN 1.9 g/dL (3.4-5.0); BILIRUBIN,TOTAL 0.4 mg/dL (0.2-1.0); CREATININE 0.7 mg/dL (0.6-1.3); DIGOXIN 0.75 ng/mL (0.90-2.00); MAGNESIUM 1.7 mg/dL (1.8-2.4); PHOSPHORUS 1.9 mg/dL (2.5-4.9); POTASSIUM 3.7 mmol/L (3.5-5.1); TOTAL PROTEIN, SERUM 6.2 g/dL (6.4-8.2)
--- NOTE | 2019-04-23 14:29 | NUR ---
Discharge notes Patient discharged at this time. No sob noted, vital signs stable, no s/s of pain. Paperwork and discharge papers with patient. IV line removed with minimal bleeding noted. Pictures taken and is in the chart now.
== END 2019-04-23 14:05 | DRG 871 ==
LOC: ER 13:10 → TELE 16:36 → MED 04-20 09:05 → TELE 04-20 09:05 → MED 04-21 07:57
PROVIDERS: ADMIT Internal Medicine; ATTEND Internal Medicine
DX: A41.9 Sepsis, unspecified organism (principal); J96.00 Acute respiratory failure, unspecified whether with hypoxia or hypercapnia; N17.0 Acute kidney failure with tubular necrosis; G92 Toxic encephalopathy; I21.A1 Myocardial infarction type 2; N39.0 Urinary tract infection, site not specified; E87.0 Hyperosmolality and hypernatremia; I42.9 Cardiomyopathy, unspecified; E46 Unspecified protein-calorie malnutrition; I48.91 Unspecified atrial fibrillation; I25.10 Atherosclerotic heart disease of native coronary artery without angina pectoris; F03.90 Unspecified dementia, unspecified severity, without behavioral disturbance, psychotic disturbance, mood disturbance, and anxiety; I11.0 Hypertensive heart disease with heart failure; I50.9 Heart failure, unspecified; I25.2 Old myocardial infarction; I44.7 Left bundle-branch block, unspecified; Z91.018 Allergy to other foods; Z95.1 Presence of aortocoronary bypass graft; Z87.81 Personal history of (healed) traumatic fracture; Z79.01 Long term (current) use of anticoagulants; Z79.899 Other long term (current) drug therapy; I35.0 Nonrheumatic aortic (valve) stenosis; E83.39 Other disorders of phosphorus metabolism; E87.6 Hypokalemia; D63.8 Anemia in other chronic diseases classified elsewhere; T46.0X5A Adverse effect of cardiac-stimulant glycosides and drugs of similar action, initial encounter; Y92.129 Unspecified place in nursing home as the place of occurrence of the external cause; L89.150 Pressure ulcer of sacral region, unstageable; L89.310 Pressure ulcer of right buttock, unstageable; L89.890 Pressure ulcer of other site, unstageable; L89.221 Pressure ulcer of left hip, stage 1; S90.822A Blister (nonthermal), left foot, initial encounter; S90.821A Blister (nonthermal), right foot, initial encounter; X58.XXXA Exposure to other specified factors, initial encounter; Y92.9 Unspecified place or not applicable; J44.9 Chronic obstructive pulmonary disease, unspecified; B96.1 Klebsiella pneumoniae [K. pneumoniae] as the cause of diseases classified elsewhere; C50.919 Malignant neoplasm of unspecified site of unspecified female breast
CPT/HCPCS: 36415; 71045-TC; 80048-TC; 80053-TC; 80076-TC; 80162-TC; 81000-TC; 82728-TC; 83540-TC; 83605-TC; 83735-TC; 84100-TC; 84484-TC; 85025-TC; 85730-TC; 87040-TC; 87081-TC; 87086-TC; 87186-TC; A4216; G0378; J2185; J2543; J3370; J3475; J3490; J7030; J7042; J7060